=== PATIENT | male | born 1970 | race African-American/Black ===

== ENCOUNTER 2016-04-26 17:39 | Inpatient (IN) | payer OTHER ==
[~2016-04-26] VITALS: Ht 172.7 cm; Wt 79.0 kg
[~2016-04-26 17:39] MED LIST: AMLO-218 PO; CLON1TAB3 PO; GABA-526 PO; HYDR100T7 PO; LISI40TA9 PO; METO10TA92 PO; MIN10 PO; NIFE60TA12 PO; ONDA4TAB8 PO; OXYC-282 PO; RANI150T5 PO; SERT50TA6 PO
--- NOTE | 2016-04-26 20:44 | RADRPT ---
PROCEDURE: CR, chest CLINICAL INDICATION: Cough. TECHNIQUE: AP chest. COMPARISON: Chest, 04/14/2015. FINDINGS: The heart is moderately enlarged. There is linear atelectasis in the left mid lung. There is no ac aftab infiltrate in the lungs. No pleural effusion. IMPRESSION: 1. Moderate cardiomegaly. 2. Linear atelectasis in the left mid lung. RPTAT: GG .Francisco Jackson MD, MD Date Time Electronically viewed and signed by .Francisco Jackson MD, MD on 04/26/2016 20:44 .Y/
[2016-04-26] MEDS ORDERED: OXYC15TA PO (20:46)
[2016-04-26 21:28] LABS: INR 1.07; PROTIME 13.9 Sec (12.2-14.2); PT RATIO 1.1
[2016-04-26 21:29] LABS: PARTIAL THROMBOPLASTIN TIME 24.7 Sec (25.0-35.0)
[2016-04-26 21:31] LABS: ALBUMIN 3.6 g/dl (3.3-4.9)
[2016-04-26 21:35] LABS: ALBUMIN/GLOBULIN RATIO 1.09; CALCIUM 8.5 mg/dl (8.4-10.2); TOTAL PROTEIN 6.9 g/dl (6.1-8.1)
[2016-04-26 21:37] LABS: HEMATOCRIT 31.3 % (42.0-52.0); MEAN CORPUSCULAR HEMOGLOBIN 21.3 pg (29.0-33.0); MEAN CORPUSCULAR VOLUME 66.4 fl (82.0-101.0); MEAN PLATELET VOLUME 8.3 fl (7.4-10.4); PLATELET COUNT 192 10^3/UL (140-440); RED BLOOD COUNT 4.72 10^6/ul (4.70-6.10); RED CELL DISTRIBUTION WIDTH 24.5 % (11.5-14.5); UNCORRECTED WBC 6.4 10^3/ul (4.8-10.8); WHITE BLOOD COUNT 6.4 10^3/ul (4.8-10.8)
[2016-04-26 21:38] LABS: CONDITION 1; LH ANALYZER COMMENTS 1
[2016-04-26 21:47] LABS: CREATININE 14.97 mg/dl (0.61-1.24)
[2016-04-26 21:48] LABS: EOSINOPHILS # 0.2 10^3/ul (0.0-0.5); LYMPHOCYTES # 1.3 10^3/ul (0.8-2.9); MONOCYTE # 0.9 10^3/ul (0.3-0.9)
[2016-04-26] MEDS ORDERED: NA BICARBONATE 8.4% 50 ML SYG IV STA (21:50)
[2016-04-26] MEDS ORDERED: DEXTROSE 50% 50 ML SYRINGE IV STA (21:50)
[2016-04-26] MEDS ORDERED: INSULIN REGULAR, HUMAN 100 UNIT/1 ML 3ML VIAL IV STA (21:50)
[2016-04-26] MEDS ORDERED: NA POLYST SULFON 15 GM/60 ML BTL PO STA (21:50)
[2016-04-26] MEDS ORDERED: ALBUTEROL 0.5% (NEB) 2.5 MG/0.5 ML AMP INH STA (21:50)
[2016-04-26] MEDS ORDERED: ONDANSETRON 4 MG INJ IV PRN (22:00)
[2016-04-26] MEDS ORDERED: ACETAMINOPHEN 325 MG TAB PO PRN (22:00)
--- NOTE | 2016-04-26 22:07 | ERA ---
ER Documentation Chief Complaint Date/Time DATE: 04/26/16 TIME: 22:04 Chief Complaint abdominal distention and needs dialysis. pt is from out of town HPI Patient is a 45-year-old male with dialysis and hypertension who presents saying "I need to get dialyzed". The patient came from [place]. He had dialysis on Monday but needs it today. He has bilateral leg swelling and says "I need my stomach As well". He had his last paracentesis done on Monday as well he says. Upon review of old medical records this is the patient's third visit since April 2015. His primary doctor is in [place]. ROS All systems reviewed and are negative except as per history of present illness. Medications Home Meds Active Scripts Ondansetron Hcl* (Zofran*) 4 Mg Tablet, 4 MG PO Q8 for 30 Days, TAB 2 Refills Prov:KODY PHILLIP S. 04/16/15 Metoclopramide* (Reglan*) 10 Mg Tablet, 10 MG PO DAILY for 30 Days, TAB Prov:KODY PHILLIP S. 04/16/15 Ranitidine Hcl* (Ranitidine Hcl*) 150 Mg Tablet, 150 MG PO Q12 for 30 Days, TAB 2 Refills Prov:KODY PHILLIP S. 04/16/15 Minoxidil* (Lonitin*) 10 Mg Tab, 10 MG PO DAILY for 30 Days, TAB 2 Refills Prov:KODY PHILLIP S. 04/16/15 Amlodipine Besylate* (Norvasc*) 10 Mg Tablet, 10 MG PO DAILY for 30 Days, TAB 2 Refills Prov:KODY PHILLIP S. 04/16/15 Nifedipine* (Nifedical XL*) 60 Mg/Bottle Tab.osm.24, 60 MG PO DAILY for 30 Days , TAB 2 Refills Prov:KODY PHILLIP S. 04/16/15 Lisinopril* (Lisinopril*) 40 Mg Tablet, 40 MG PO DAILY, #30 TAB Prov:KODY PHILLIP S. 04/16/15 Hydralazine Hcl* (Hydralazine Hcl*) 100 Mg Tablet, 100 MG PO BID, #90 TAB Prov:KODY PHILLIP S. 04/16/15 Clonazepam* (Clonazepam*) 1 Mg Tablet, 1 MG PO QHS Y for ANXIETY for 30 Days, TAB Prov:GREG PHILLIPEEP S. 04/16/15 Reported Medications Oxycodone Hcl* (IR) (Oxycodone Hcl*) 15 Mg Tablet, 15 MG PO BID Y for PAIN, TAB 04/26/16 Discontinued Reported Medications Oxycodone Hcl-Acetaminophen* (Percocet*) 2.5-325 Mg Tablet, 1 TAB PO BID Y for SEVERE PAIN LEVEL 7-10, TAB 04/14/15 Discontinued Scripts Sertraline Hcl* (Sertraline Hcl*) 50 Mg Tablet, 50 MG PO DAILY, #30 TAB Prov:KENJI,KODY S. 04/16/15 Gabapentin* (Gabapentin*) 600 Mg Tablet, 600 MG PO TID, #90 TAB Prov:KENJIKODY S. 04/16/15 Allergies Allergies: Coded Allergies: No Known Allergy (Unverified , 04/26/16) PMhx/Soc History of Surgery: No Anesthesia Reaction: No Hx Neurological Disorder: No Hx Respiratory Disorders: No Hx Cardiac Disorders: Yes (HTN) Hx Psychiatric Problems: No Hx Miscellaneous Medical Probl: Yes (ESRD ON HD) Hx Alcohol Use: No Hx Substance Use: Yes (MARIJUANA USE) Hx Tobacco Use: Yes FmHx Family History: No diabetes Physical Exam Vitals Vital Signs Date Time Temp Pulse Resp B/P Pulse Ox O2 Delivery O2 Flow Rate FiO2 04/26/16 18:04 99.5 93 20 218/143 98 Physical Exam Const: No acute distress Head: Atraumatic Eyes: Normal Conjunctiva ENT: Normal External Ears, Nose and Mouth. Neck: Full range of motion..~ No meningismus. Resp: Clear to auscultation bilaterally Cardio: Regular rate and rhythm, no murmurs Abd: Abdominal distention with positive fluid wave Skin: No petechiae or rashes Back: No midline or flank tenderness Ext: Fistula in the left upper extremity Neur: Awake and alert Psych: Normal Mood and Affect Result Diagram: 04/26/16210004/26/162100 Results 24 hrs Laboratory Tests Test 04/26/16 21:01 Activated Partial Thromboplast Time 24.7Sec Alanine Aminotransferase (ALT/SGPT) 31IU/L Albumin 3.6g/dl Albumin/Globulin Ratio 1.09 Alkaline Phosphatase 88IU/L Anion Gap 23 Aspartate Amino Transf (AST/SGOT) 26IU/L Blood Morphology Comment Blood Urea Nitrogen 97mg/dl Calcium Level 8.5mg/dl Carbon Dioxide Level 29mmol/L Chloride Level 93mmol/L Creatinine 14.97mg/dl Direct Bilirubin 0.00mg/dl Eosinophils # 0.210^3/ul Eosinophils % 3.0% Globulin 3.30g/dl Glucose Level 75mg/dl Hematocrit 31.3% Hemoglobin 10.0g/dl INR International Normalized Ratio 1.07 Indirect Bilirubin 0.0mg/dl Lipase 114U/L Lymphocytes # 1.310^3/ul Lymphocytes % 21.0% Mean Corpuscular Hemoglobin 21.3pg Mean Corpuscular Hemoglobin Concent 32.0g/dl Mean Corpuscular Volume 66.4fl Mean Platelet Volume 8.3fl Monocytes # 0.910^3/ul Monocytes % 14.0% Neutrophils # 4.010^3/ul Neutrophils % 62.0% Platelet Count 79303^3/UL Potassium Level 7.0mmol/L Prothrombin Time 13.9Sec Prothrombin Time Ratio 1.1 Red Blood Count 4.7210^6/ul Red Cell Distribution Width 24.5% Sodium Level 138mmol/L Total Bilirubin 0.0mg/dl Total Protein 6.9g/dl White Blood Count 6.410^3/ul Current Medications Medications (Trade) Dose Ordered Sig/Alejandrina Route PRN Reason Start Time Stop Time Status Last Admin Dose Admin Insulin Human Regular (Humulin R) 10 unit ONCE STAT IV 04/26/16 21:50 04/26/16 21:51 DC Dextrose (D50w Syringe) 50 ml ONCE STAT IV 04/26/16 21:50 04/26/16 21:51 DC Sodium Polystyrene Sulfonate (Kayexalate) 30 gm ONCE STAT PO 04/26/16 21:50 04/26/16 21:51 DC Albuterol (Proventil 0.5% (Neb)) 15 mg ONCE STAT INH 04/26/16 21:50 04/26/16 21:51 DC Sodium Bicarbonate (Na Bicarb 8.4% Syg) 50 ml ONCE STAT IV 04/26/16 21:50 04/26/16 21:51 DC Ondansetron HCl (Zofran Inj) 4 mg ER BRIDGE PRN IV NAUSEA AND/OR VOMITING 04/26/16 22:00 04/27/16 21:59 Acetaminophen (Tylenol Tab) 650 mg ER BRIDGE PRN PO MILD PAIN/FEVER 04/26/16 22:00 04/27/16 21:59 Procedures/MDM EKG read by me: Rate/Rhythm: Regular rate and rhythm at a normal rate Intervals: Normal Impression: No evidence of ischemia or arrhythmia Smoking Cessation Therapy: Pt. was lectured for greater than 3 minutes on the health risks of continued smoking and the benefits of cessation. Patient is a 45-year-old male who presents with severe hyperkalemia as well as ascites. The patient will treated for hyperkalemia with insulin, glucose, bicarbonate, Kayexalate, and albuterol. The patient will be admitted to the care of Dr. An from the panel team as he has been admitted to the panel team in the past. The patient will be admitted to a telemetry bed. He also had hypertension and was given hydralazine IV. Given his comorbidities he does have a poor prognosis. Critical Care: Time: 35 minutes excluding all billable procedures. Treatments/Evaluations: Close monitoring and treatment of unstable vital signs, cardiorespiratory, and neurologic status, while maintaining tight balance of fluid, respiratory, and cardiac interventions. Departure Diagnosis: Primary Impression: Hyperkalemia Additional Impressions: Ascites Qualified Code: R18.8 - Other ascites Hypertension Qualified Code: I10 - Essential hypertension Fluid overload Qualified Code: E87.70 - Hypervolemia, unspecified hypervolemia type Condition: CORI Mooney MD Apr 26, 2016 22:07
[2016-04-26] MEDS ORDERED: hydrALAzine 20 MG INJ IV ONE ×2 (22:30→23:30)
[2016-04-26] MEDS ORDERED: HYDROmorphONE 1 MG/ML SYG IV STA (23:36)
[2016-04-27] VITALS (20 sets, daily range): BP systolic 151–204; BP diastolic 97–142; PULSE 90–108; RESP 18–20; Ht 172.7 cm; Wt 79.0 kg
[2016-04-27] MEDS ORDERED: METOPROLOL 5 MG INJ IV ONE (00:30)
[2016-04-27] MEDS ORDERED: LABETALOL HCL 20MG INJ IV ONE (01:27)
[2016-04-27] MEDS: morphine 4 MG/ML VIAL IV PRN ×4 (01:32→15:38)
[2016-04-27 02:37] LABS: CALCIUM 8.4 mg/dl (8.4-10.2)
[2016-04-27 02:40] LABS: POTASSIUM 6.6 mmol/L (3.5-5.1)
[2016-04-27 02:55] LABS: CREATININE 13.85 mg/dl (0.61-1.24)
[2016-04-27] MEDS ORDERED: oxyCODONE (CR) 15 MG TAB [oxyCONTIN] PO PRN (04:00)
[2016-04-27] MEDS ORDERED: oxyCODONE 15 MG TAB PO PRN (04:42)
[2016-04-27] MEDS: clonAZEPAM 0.5 MG TAB PO PRN (04:59)
[2016-04-27] MEDS ORDERED: NA POLYST SULFON 15 GM/60 ML BTL PO ONE (05:20)
[2016-04-27] MEDS ORDERED: CALCIUM GLUCONATE 10% 2 GM in SOD CHLORIDE 0.9% 100 ML IVPB ONE (05:30)
[2016-04-27] MEDS: MINOXIDIL 10 MG TAB PO SCH (06:14)
[2016-04-27] MEDS: NIFEdipine (XL) 60 MG TAB PO SCH (06:15)
[2016-04-27] MEDS: LISINOPRIL 20 MG TAB PO SCH (06:15)
[2016-04-27] MEDS: AMLODIPINE 10 MG TAB PO SCH (06:16)
[2016-04-27] MEDS ORDERED: LISINOPRIL 20 MG TAB PO SCH (09:00)
[2016-04-27] MEDS ORDERED: AMLODIPINE 10 MG TAB PO SCH (09:00)
[2016-04-27] MEDS ORDERED: MINOXIDIL 10 MG TAB PO SCH (09:00)
[2016-04-27] MEDS ORDERED: NIFEdipine (XL) 60 MG TAB PO SCH (09:00)
[2016-04-27] MEDS: RANITIDINE 150 MG TAB PO SCH (09:25)
[2016-04-27] MEDS: hydrALAzine 20 MG INJ IV PRN (09:27)
[2016-04-27] MEDS: HEPARIN 5,000 UNIT/0.5 ML SYG SC SCH (09:37)
[2016-04-27 10:00] LABS: BASOPHILS % 0.6 % (0.0-2.0); EOSINOPHILS # 0.2 10^3/ul (0.0-0.5); EOSINOPHILS % 2.5 % (0.0-7.0); HEMATOCRIT 31.1 % (42.0-52.0); HEMOGLOBIN 9.9 g/dl (14.0-18.0); LYMPHOCYTES # 1.4 10^3/ul (0.8-2.9); LYMPHOCYTES % 18.3 % (15.0-51.0); MEAN CORPUSCULAR HGB CONC 31.9 g/dl (32.0-37.0); MEAN CORPUSCULAR VOLUME 65.8 fl (82.0-101.0); MEAN PLATELET VOLUME 8.5 fl (7.4-10.4); MONOCYTE # 0.7 10^3/ul (0.3-0.9); MONOCYTES % 9.3 % (0.0-11.0); NEUTROPHIL # 5.2 10^3/ul (1.6-7.5); NEUTROPHILS % 69.3 % (39.0-77.0); PLATELET COUNT 193 10^3/UL (140-440); RED BLOOD COUNT 4.72 10^6/ul (4.70-6.10); RED CELL DISTRIBUTION WIDTH 23.9 % (11.5-14.5); UNCORRECTED WBC 7.5 10^3/ul (4.8-10.8); WHITE BLOOD COUNT 7.5 10^3/ul (4.8-10.8)
[2016-04-27 10:09] LABS: ALBUMIN 3.6 g/dl (3.3-4.9)
[2016-04-27 10:10] LABS: POTASSIUM 5.5 mmol/L (3.5-5.1)
[2016-04-27 10:12] LABS: ALBUMIN/GLOBULIN RATIO 1.09; TOTAL PROTEIN 6.9 g/dl (6.1-8.1)
[2016-04-27 10:13] LABS: CALCIUM 8.3 mg/dl (8.4-10.2)
[2016-04-27 10:20] LABS: CREATININE 14.75 mg/dl (0.61-1.24)
[2016-04-27 10:24] LABS: CONDITION 1; LH ANALYZER COMMENTS 1
[2016-04-27] MEDS ORDERED: LIDOCAINE 1% (MPF) 5 ML VIAL ONE (10:48)
[2016-04-27 11:18] LABS: CHOL/HDL RATIO 2.7 RATIO
--- NOTE | 2016-04-27 11:32 | RADRPT ---
PROCEDURE: Ultrasound guided paracentesis. CLINICAL INDICATION: Ascites and shortness of breath. COMPARISON: No prior studies are available for comparison. TECHNIQUE: The risks, benefits, and alternatives were explained to the patient, including but not limited to bl eeding, infection, pain, visceral or vascular damage, shock, and . The patient understood the risks and the alternatives and wished to proceed with the procedure. Informed written consent was o btained. A procedural time out was performed. The patient's name, date of , and procedure to b e performed were verified. Utilizing ultrasound guidance, optimal location for entry to the peritoneal cavity was ascertained. The overlying skin was prepped and draped in the usual sterile fashion. Approximately 10 ml of 1% Xylocaine was injected locally for pain control. Using ultrasound guidance, an 8 Turkmen catheter wa s introduced into the peritoneal cavity in the left lower quadrant without difficulty. FINDINGS: Initial images demonstrate ascites. Approximately 3.5 liters of serous fluid was aspirated and disc arded. The patient tolerated the procedure well without complication. IMPRESSION: 1. Successful ultrasound-guided paracentesis. RPTAT: QQ .Candido Howe MD, Date Time Electronically viewed and signed by .Candido Howe MD, MD on 04/27/2016 11:32 .R/
--- NOTE | 2016-04-27 12:44 | QN ---
Documentation Comment [id number] ESRD HTN HYPERKALEMIA ANEMIA ASHD ASCITES PLAN HD BP CONTROL TERE REIS MD Apr 27, 2016 12:44
--- NOTE | 2016-04-27 13:34 | PN ---
DATE: 04/27/2016 SUBJECTIVE: No acute events overnight. The patient off the floor at procedure. OBJECTIVE VITAL SIGNS: Systolic blood pressure is running in the 195 to 200 range, diastolic is 132 to 142. The rest of his vital signs are stable. Physical examination unable to be performed today because the patient is off the floor at paracentes is. LABORATORY DATA: There is no new CBC or basic metabolic panel from this morning. The patient had a chest x-ray yesterday that showed moderate cardiomegaly, and linear atelectasis in the left mid erick g. ASSESSMENT AND PLAN: A 45-year-old male who presents with past medical history of end-stage renal di sease on dialysis, and hypertension who presents with abdominal distention and need for dialysis. 1. End-stage renal disease on dialysis. Again, patient looks like he has missed his dialysis sessi on for the last few days, so we will get renal consult. Continue dialysis per their recommendations as well. 2. Hypertensive urgency. Blood pressure is uncontrolled. Continue home medications: Norvasc, nife dipine, lisinopril, minoxidil and also he is on hydralazine IV p.r.n. systolic greater than 160 as w ell. 3. History of cirrhosis. Again, patient does have abdominal distention and is undergoing paracente sis. For now follow up fluid studies and continue current medications as listed in #2. 4. GI prophylaxis. 5. Deep venous thrombosis prophylaxis. Heparin subcutaneously. 6. Gastrointestinal prophylaxis. He is on an H2 jn. Dictated By: KODY MARCUM Conf#: [id number] DID#: [id number]
--- NOTE | 2016-04-27 14:09 | CONS ---
DATE OF ADMISSION: 04/26/2016 DATE OF CONSULTATION: Thank you, Dr. Gu, for kindly asking me to see this patient in nephrology consultation. HISTORY OF PRESENT ILLNESS: The patient is a 45-year-old male with history of ESRD, hypertension, history of marijuana use, presented with missing hemodialysis, noted to have hyperkalemia, which has been treated medically, and patient will need hemodialysis. The patient has a history of ascites, status post paracentesis done, 3.5 liters of fluid was removed, and the patient is going to be undergoing hemodialysis. PAST MEDICAL HISTORY: As per patient, ascites, hypertension, ESRD, anemia, AV fistula in left upper extremity. ALLERGY HISTORY: NEGATIVE. FAMILY HISTORY: Hypertension. SOCIAL HISTORY: Positive for smoking marijuana. MEDICATIONS AT HOME: 1. Patient is on Norvasc. 2. Clonazepam. 3. Hydralazine. 4. Lisinopril. 5. Reglan. 6. Minoxidil. 7. Nifedipine. 8. Zofran. 9. Oxycodone. 10. Ranitidine. REVIEW OF SYSTEMS: HEENT: Unremarkable. RESPIRATORY: ABDOMEN: Unremarkable. No abdominal pain. PHYSICAL EXAMINATION: GENERAL: The patient is awake, alert. VITAL SIGNS: Pulse of 94, blood pressure 197/136. HEAD: Atraumatic, normocephalic. Pupils are equal and reactive. NECK: Supple, no JVD. LUNGS: Clear. CARDIOVASCULAR: S1, S2 are normal. ABDOMEN: Soft. Bowel sounds positive. Ascites appreciated. EXTREMITIES: There is no cyanosis, clubbing. Edema positive. CENTRAL NERVOUS SYSTEM: The patient is awake, alert, no focal deficit. LABORATORY DATA: Potassium earlier 7, repeat _ Patient's hematocrit 31.1. Chest x-ray shows the patient has moderate cardiomegaly, linear atelectasis in left mid lung. IMPRESSION 1. Hyperkalemia/end-stage renal disease. 2. Hypertension. uncontrolled. 3. Ascites. 4. Anemia. 5. Decreased MCV. 6. Hyperkalemia. 7. Noncompliance. 8. History of marijuana use. PLAN: To continue renal diet, blood pressure control, hemodialysis. Orders were done. Thank you, Dr. Gu, for kindly asking me to evaluate this patient in nephrology consultation. Patient is currently on: 1. Amlodipine. 2. Clonazepam. 3. Clonidine. 4. The patient is on hydralazine. 5. Patient is on lisinopril. 6. Reglan. 7. Metoprolol. 8. Minoxidil, which will be continued. Dictated By: TERE BANDA/HUMA Conf#: [id number] DID#: [id number] MTDD
--- NOTE | 2016-04-27 23:55 | HP ---
Date/Time of Note Date/Time of Note DATE: 04/26/16 TIME: 23:41 Assessment/Plan VTE Prophylaxis VTE Prophylaxis Intervention: SCD's, other Lines/Catheters IV [facility] Saline Lock Urinary Cath still in place: No Assessment/Plan Assessment/Plan IMPRESSION 1. Hyperkalemia, 2/2 missing dialysis 2. ESRD on HD 3. Decompensated Liver Cirrhosis with ascites 4. Hypertensive Urgency PLAN - Nephrology consult for dialysis - Give extra dose of kayexalate since repeat K+ is still high - Cont home anti-hypertensive meds and add/adjust dose for better BP control - Order u/s guided paracentesis - Since pt still makes urine, his home meds should include lasix and if he is to get dialysis regularly(so as not to run into problem with hyperkalemia), Aldactone as well. This way, he may not need paracentesis [id number] HPI/ROS Admit Date/Time Admit Date/Time Apr 26, 2016 at 21:51 Hx of Present Illness Patient is a 45 yo male with hx of HTN, ESRD on HD, Cirrhosis and neuropathy who presented to ER complaining of abd distention and bilateral lower ext swelling. He said last HD was a week ago. He said he gets paracentesis every 2 weeks. He came from [place] recently and said will stay for 2 weeks here before going back. He was admitted here last year for similar presentation after coming from [place] and missing dialysis. When pt came to ER today, he was found to have a K+ of 7, BUN 97, cr 15. Blood pressure has consistently been elevated with SBP > 200. . PMH/Family/Social Past Medical History Medical History: hypertension, renal disease, other (cirrhosis) Past Surgical History Past Surgical Hx: other (AV fistula) Social History Alcohol Use: sober Smoking Status: Current every day smoker Drug Use: marijuana Exam/Review of Systems Vital Signs Vitals Vital Signs Date Time Temp Pulse Resp B/P Pulse Ox O2 Delivery O2 Flow Rate FiO2 04/27/16 23:00 105 04/27/16 20:30 18 04/27/16 19:30 98.3 158/103 93 04/27/16 06:17 Room Air 04/27/16 00:21 21 Intake and Output 04/26/16 04/26/16 04/27/16 15:00 23:00 07:00 Intake Total 500 ml Output Total 200 ml Balance 300 ml Exam Constitutional: alert, oriented, well developed Head: atraumatic, normocephalic Eyes: EOMI, PERRL Respiratory: clear to auscultation, normal air movement Cardiovascular: other (tachycardic with regular rhythm) Gastrointestinal: distended, tender Extremities: edema Labs Result Diagram: 04/27/1630 04/27/1630 Medications Medications Current Medications Morphine Sulfate (morphine) 4 mg Q4H PRN IV pain Last administered on 15:38; Admin Dose 4 MG; Start 04/27/16 at 01:20 Heparin Sodium (Porcine) (Heparin (5000 Units/0.5 ml)) 5,000 unit BID SC Last administered on 04/27/16 09:37; Admin Dose 5,000 UNIT; Start 04/27/16 at 09:00 Clonidine (Catapres) 0.1 mg Q6H PRN PO ELEVATED SYSTOLIC BP Last administered on 04/27/16 03:43; Admin Dose 0.1 MG; Start 04/27/16 at 01:30 Clonazepam (Klonopin) 1 mg QHS PRN PO ANXIETY Last administered on 04/27/16 04 :59; Admin Dose 1 MG; Start 04/27/16 at 04:00 Metoclopramide HCl (Reglan) 10 mg DAILY PRN PO NAUSEA AND/OR VOMITING; Start at 04:00 Ranitidine HCl (Zantac) 150 mg DAILY PO Last administered on 04/27/16 09:25; Admin Dose 150 MG; Start 04/27/16 at 09:00 Oxycodone HCl (Roxicodone) 15 mg BID PRN PO PAIN; Start 04/27/16 at 04:42 Lisinopril (Zestril) 40 mg DAILY PO Last administered on 04/27/16 06:15; Admin Dose 40 MG; Start 04/27/16 at 06:00 Amlodipine Besylate (Norvasc) 10 mg DAILY PO Last administered on 04/27/16 06: 16; Admin Dose 10 MG; Start 04/27/16 at 06:00 Minoxidil (Loniten) 10 mg DAILY PO Last administered on 04/27/16 06:14; Admin Dose 10 MG; Start 04/27/16 at 06:00 Nifedipine (Procardia Xl) 60 mg DAILY PO Last administered on 04/27/16 06:15; Admin Dose 60 MG; Start 04/27/16 at 06:00 Hydralazine HCl (Apresoline) 10 mg Q4H PRN IV SBP >160 Last administered on 09:27; Admin Dose 10 MG; Start 04/27/16 at 08:30 JARRED ABRAHAM MD Apr 27, 2016 23:52
[2016-04-28] VITALS (20 sets, daily range): BP systolic 122–184; BP diastolic 68–114; PULSE 104–122; RESP 15–20
[2016-04-28] MEDS: clonAZEPAM 0.5 MG TAB PO PRN (00:40)
[2016-04-28] MEDS: hydrALAzine 20 MG INJ IV PRN (00:44)
[2016-04-28] MEDS: HEPARIN 5,000 UNIT/0.5 ML SYG SC SCH ×3 (00:48→21:03)
[2016-04-28 06:51] LABS: BASOPHILS % 0.6 % (0.0-2.0); CREATININE 9.29 mg/dl (0.61-1.24); EOSINOPHILS # 0.2 10^3/ul (0.0-0.5); EOSINOPHILS % 3.2 % (0.0-7.0); HEMATOCRIT 29.3 % (42.0-52.0); HEMOGLOBIN 9.3 g/dl (14.0-18.0); LYMPHOCYTES # 1.3 10^3/ul (0.8-2.9); LYMPHOCYTES % 19.9 % (15.0-51.0); MEAN CORPUSCULAR HEMOGLOBIN 21.2 pg (29.0-33.0); MEAN CORPUSCULAR HGB CONC 31.8 g/dl (32.0-37.0); MEAN CORPUSCULAR VOLUME 66.5 fl (82.0-101.0); MEAN PLATELET VOLUME 8.5 fl (7.4-10.4); MONOCYTE # 1.1 10^3/ul (0.3-0.9); MONOCYTES % 17.4 % (0.0-11.0); NEUTROPHIL # 3.8 10^3/ul (1.6-7.5); NEUTROPHILS % 58.9 % (39.0-77.0); PLATELET COUNT 185 10^3/UL (140-440); RED BLOOD COUNT 4.41 10^6/ul (4.70-6.10); UNCORRECTED WBC 6.4 10^3/ul (4.8-10.8); WHITE BLOOD COUNT 6.4 10^3/ul (4.8-10.8)
[2016-04-28 06:52] LABS: CALCIUM 8.6 mg/dl (8.4-10.2)
[2016-04-28 07:05] LABS: CONDITION 1; LH ANALYZER COMMENTS 1
[2016-04-28] MEDS: morphine 4 MG/ML VIAL IV PRN (07:52)
[2016-04-28] MEDS: RANITIDINE 150 MG TAB PO SCH (08:28)
[2016-04-28] MEDS: METOCLOPRAMIDE 5 MG TAB PO PRN (08:28)
[2016-04-28] MEDS: MINOXIDIL 10 MG TAB PO SCH (08:28)
[2016-04-28] MEDS: LISINOPRIL 20 MG TAB PO SCH (08:29)
[2016-04-28] MEDS: NIFEdipine (XL) 60 MG TAB PO SCH (08:29)
[2016-04-28] MEDS: AMLODIPINE 10 MG TAB PO SCH (08:29)
--- NOTE | 2016-04-28 11:46 | PN ---
Date/Time of Note Date/Time of Note DATE: 04/28/16 TIME: 11:44 Assessment/Plan VTE Prophylaxis VTE Prophylaxis Intervention: heparin Lines/Catheters IV C[facility]ter Type (from [facility]): Saline Lock Urinary Cath still in place: No Assessment/Plan Chief Complaint/Hosp Course ASSESSMENT AND PLAN: 45-year-old male who presents with past medical history of end-stage renal disease on dialysis, and hypertension who presents with abdominal distention and need for dialysis. 1. End-stage renal disease on dialysis. Again, patient looks like he has missed his dialysis session for the last few days. - continue HD in house per renal rec's 2. Hypertensive urgency - has been uncontrolled until this AM - Continue home medications: Norvasc, nifedipine, lisinopril, minoxidil - continue hydralazine IV p.r.n. systolic greater than 160 as well. 3. History of cirrhosis. Again, patient does have abdominal distention and is s/p paracentesis yesterday. - monitor, f/u fluid studies and continue current medications as listed in # 2. 4. GI prophylaxis - H2 jn. 5. Deep venous thrombosis prophylaxis. Heparin subcutaneously. Problems: Subjective 24 Hr Interval Summary Free Text/Dictation Pt received HD yesterday, and getting it now. Exam/Review of Systems Vital Signs Vitals Vital Signs Date Time Temp Pulse Resp B/P Pulse Ox O2 Delivery O2 Flow Rate FiO2 04/28/16 08:14 98.7 103 20 184/110 96 04/27/16 06:17 Room Air 04/27/16 00:21 21 Intake and Output 04/27/16 04/27/16 04/28/16 15:00 23:00 07:00 Intake Total 100 ml 2260 ml Output Total 4000 ml Balance 100 ml -1740 ml Exam Constitutional: alert, oriented, well developed Head: atraumatic, normocephalic Eyes: EOMI, PERRL Respiratory: clear to auscultation, normal air movement Cardiovascular: other (tachycardic with regular rhythm) Gastrointestinal: less distended, less tender Extremities: edema Results Result Diagram: 04/28/16 0600 04/28/16 0600 Results 24 hrs Laboratory Tests Test 04/28/16 06:00 Anion Gap 18 #H Basophils # 0.0 Basophils % 0.6 Blood Morphology Comment Blood Urea Nitrogen 54 #H Calcium Level 8.6 Carbon Dioxide Level 29 Chloride Level 92 L Creatinine 9.29 #H Eosinophils # 0.2 Eosinophils % 3.2 Glucose Level 81 Hematocrit 29.3 L Hemoglobin 9.3 L Lymphocytes # 1.3 Lymphocytes % 19.9 Mean Corpuscular Hemoglobin 21.2 L Mean Corpuscular Hemoglobin Concent 31.8 L Mean Corpuscular Volume 66.5 L Mean Platelet Volume 8.5 Monocytes # 1.1 H Monocytes % 17.4 H Neutrophils # 3.8 Neutrophils % 58.9 Nucleated Red Blood Cells # 0.0 Nucleated Red Blood Cells % 0.0 Platelet Count 185 Potassium Level 5.0 Red Blood Count 4.41 L Red Cell Distribution Width 24.0 H Sodium Level 134 L White Blood Count 6.4 Medications Medications Current Medications Morphine Sulfate (morphine) 4 mg Q4H PRN IV pain Last administered on 07:52; Admin Dose 4 MG; Start 04/27/16 at 01:20 Heparin Sodium (Porcine) (Heparin (5000 Units/0.5 ml)) 5,000 unit BID SC Last administered on 04/28/16 00:48; Admin Dose 5,000 UNIT; Start 04/27/16 at 09:00 Clonidine (Catapres) 0.1 mg Q6H PRN PO ELEVATED SYSTOLIC BP Last administered on 04/27/16 03:43; Admin Dose 0.1 MG; Start 04/27/16 at 01:30 Clonazepam (Klonopin) 1 mg QHS PRN PO ANXIETY Last administered on 04/28/16 00 :40; Admin Dose 1 MG; Start 04/27/16 at 04:00 Metoclopramide HCl (Reglan) 10 mg DAILY PRN PO NAUSEA AND/OR VOMITING Last administered on 04/28/16 08:28; Admin Dose 10 MG; Start 04/27/16 at 04:00 Ranitidine HCl (Zantac) 150 mg DAILY PO Last administered on 04/28/16 08:28; Admin Dose 150 MG; Start 04/27/16 at 09:00 Oxycodone HCl (Roxicodone) 15 mg BID PRN PO PAIN Last administered on 00:40; Admin Dose 15 MG; Start 04/27/16 at 04:42 Lisinopril (Zestril) 40 mg DAILY PO Last administered on 04/28/16 08:29; Admin Dose 40 MG; Start 04/27/16 at 06:00 Amlodipine Besylate (Norvasc) 10 mg DAILY PO Last administered on 04/28/16 08: 29; Admin Dose 10 MG; Start 04/27/16 at 06:00 Minoxidil (Loniten) 10 mg DAILY PO Last administered on 04/28/16 08:28; Admin Dose 10 MG; Start 04/27/16 at 06:00 Nifedipine (Procardia Xl) 60 mg DAILY PO Last administered on 04/28/16 08:29; Admin Dose 60 MG; Start 04/27/16 at 06:00 Hydralazine HCl (Apresoline) 10 mg Q4H PRN IV SBP >160 Last administered on 00:44; Admin Dose 10 MG; Start 04/27/16 at 08:30 KODY PHILLIP Apr 28, 2016 11:46
[2016-04-28] MEDS ORDERED: METOPROLOL (XL) 50 MG TAB PO ONE (12:00)
--- NOTE | 2016-04-28 19:31 | CONS ---
Date/Time of Note Date/Time of Note DATE: 04/28/16 TIME: 19:30 Assessment/Plan Assessment/Plan Chief Complaint/Hosp Course 1. Hyperkalemia/end-stage renal disease. 2. Hypertension. uncontrolled. 3. Ascites. 4. Anemia. 5. Decreased MCV. 6. Hyperkalemia. 7. Noncompliance. 8. History of marijuana use. plan hd Problems: Consultation Date/Type/Reason Admit Date/Time Apr 26, 2016 at 21:51 Initial Consult Date Type of Consultation: renal 24 HR Interval Summary Constitutional: no complaints Exam/Review of Systems Vital Signs Vitals Vital Signs Date Time Temp Pulse Resp B/P Pulse Ox O2 Delivery O2 Flow Rate FiO2 04/28/16 16:34 116 04/28/16 16:30 98.2 19 124/68 98 04/27/16 06:17 Room Air 04/27/16 00:21 21 Intake and Output 04/27/16 04/27/16 04/28/16 15:00 23:00 07:00 Intake Total 100 ml 2260 ml Output Total 4000 ml Balance 100 ml -1740 ml Exam Neck: supple Respiratory: clear to auscultation Cardiovascular: regular rate and rhythm Gastrointestinal: ascites (+), non-tender, soft Extremities: edema (+) Results Result Diagram: 04/28/16 0600 04/28/16 0600 Results 24 hrs Laboratory Tests Test 04/28/16 06:00 Anion Gap 18 #H Basophils # 0.0 Basophils % 0.6 Blood Morphology Comment Blood Urea Nitrogen 54 #H Calcium Level 8.6 Carbon Dioxide Level 29 Chloride Level 92 L Creatinine 9.29 #H Eosinophils # 0.2 Eosinophils % 3.2 Glucose Level 81 Hematocrit 29.3 L Hemoglobin 9.3 L Lymphocytes # 1.3 Lymphocytes % 19.9 Mean Corpuscular Hemoglobin 21.2 L Mean Corpuscular Hemoglobin Concent 31.8 L Mean Corpuscular Volume 66.5 L Mean Platelet Volume 8.5 Monocytes # 1.1 H Monocytes % 17.4 H Neutrophils # 3.8 Neutrophils % 58.9 Nucleated Red Blood Cells # 0.0 Nucleated Red Blood Cells % 0.0 Platelet Count 185 Potassium Level 5.0 Red Blood Count 4.41 L Red Cell Distribution Width 24.0 H Sodium Level 134 L White Blood Count 6.4 Medications Medications Current Medications Morphine Sulfate (morphine) 4 mg Q4H PRN IV pain Last administered on 07:52; Admin Dose 4 MG; Start 04/27/16 at 01:20 Heparin Sodium (Porcine) (Heparin (5000 Units/0.5 ml)) 5,000 unit BID SC Last administered on 04/28/16 00:48; Admin Dose 5,000 UNIT; Start 04/27/16 at 09:00 Clonidine (Catapres) 0.1 mg Q6H PRN PO ELEVATED SYSTOLIC BP Last administered on 04/27/16 03:43; Admin Dose 0.1 MG; Start 04/27/16 at 01:30 Clonazepam (Klonopin) 1 mg QHS PRN PO ANXIETY Last administered on 04/28/16 00 :40; Admin Dose 1 MG; Start 04/27/16 at 04:00 Metoclopramide HCl (Reglan) 10 mg DAILY PRN PO NAUSEA AND/OR VOMITING Last administered on 04/28/16 08:28; Admin Dose 10 MG; Start 04/27/16 at 04:00 Ranitidine HCl (Zantac) 150 mg DAILY PO Last administered on 04/28/16 08:28; Admin Dose 150 MG; Start 04/27/16 at 09:00 Oxycodone HCl (Roxicodone) 15 mg BID PRN PO PAIN Last administered on 00:40; Admin Dose 15 MG; Start 04/27/16 at 04:42 Lisinopril (Zestril) 40 mg DAILY PO Last administered on 04/28/16 08:29; Admin Dose 40 MG; Start 04/27/16 at 06:00 Amlodipine Besylate (Norvasc) 10 mg DAILY PO Last administered on 04/28/16 08: 29; Admin Dose 10 MG; Start 04/27/16 at 06:00 Minoxidil (Loniten) 10 mg DAILY PO Last administered on 04/28/16 08:28; Admin Dose 10 MG; Start 04/27/16 at 06:00 Nifedipine (Procardia Xl) 60 mg DAILY PO Last administered on 04/28/16 08:29; Admin Dose 60 MG; Start 04/27/16 at 06:00 Hydralazine HCl (Apresoline) 10 mg Q4H PRN IV SBP >160 Last administered on t 00:44; Admin Dose 10 MG; Start 04/27/16 at 08:30 TERE REIS MD Apr 28, 2016 19:31
[2016-04-29] VITALS (11 sets, daily range): BP systolic 117–134; BP diastolic 71–92; PULSE 112–118; RESP 15–19
[2016-04-29] MEDS: clonAZEPAM 0.5 MG TAB PO PRN (00:23)
[2016-04-29] MEDS: METOCLOPRAMIDE 5 MG TAB PO PRN (02:08)
[2016-04-29] MEDS: NIFEdipine (XL) 60 MG TAB PO SCH (08:23)
[2016-04-29] MEDS: AMLODIPINE 10 MG TAB PO SCH (08:24)
[2016-04-29] MEDS: LISINOPRIL 20 MG TAB PO SCH (08:24)
[2016-04-29] MEDS: RANITIDINE 150 MG TAB PO SCH (08:24)
[2016-04-29] MEDS: MINOXIDIL 10 MG TAB PO SCH (08:24)
[2016-04-29] MEDS: HEPARIN 5,000 UNIT/0.5 ML SYG SC SCH (08:24)
[2016-04-29 09:27] LABS: HEMATOCRIT 38.2 % (42.0-52.0); HEMOGLOBIN 12.1 g/dl (14.0-18.0); MEAN CORPUSCULAR HEMOGLOBIN 21.2 pg (29.0-33.0); MEAN CORPUSCULAR HGB CONC 31.7 g/dl (32.0-37.0); MEAN CORPUSCULAR VOLUME 66.9 fl (82.0-101.0); MEAN PLATELET VOLUME 8.6 fl (7.4-10.4); PLATELET COUNT 215 10^3/UL (140-440); RED BLOOD COUNT 5.71 10^6/ul (4.70-6.10); RED CELL DISTRIBUTION WIDTH 23.9 % (11.5-14.5); UNCORRECTED WBC 5.5 10^3/ul (4.8-10.8); WHITE BLOOD COUNT 5.5 10^3/ul (4.8-10.8)
[2016-04-29 09:29] LABS: CONDITION 1; LH ANALYZER COMMENTS 1
[2016-04-29 09:39] LABS: POTASSIUM 4.8 mmol/L (3.5-5.1)
[2016-04-29 09:41] LABS: CREATININE 7.82 mg/dl (0.61-1.24)
[2016-04-29 09:42] LABS: CALCIUM 9.1 mg/dl (8.4-10.2)
[2016-04-29 10:49] LABS: BASOPHIL # 0.2 10^3/ul (0.0-0.1); EOSINOPHILS # 0.2 10^3/ul (0.0-0.5); LYMPHOCYTES # 1.8 10^3/ul (0.8-2.9); MONOCYTE # 0.4 10^3/ul (0.3-0.9); NEUTROPHIL # 2.9 10^3/ul (1.6-7.5)
--- NOTE | 2016-04-29 11:49 | PN ---
Date/Time of Note Date/Time of Note DATE: 04/29/16 TIME: 11:47 Assessment/Plan VTE Prophylaxis VTE Prophylaxis Intervention: heparin Lines/Catheters IV C[facility]ter Type (from [facility] Urinary Cath still in place: No Assessment/Plan Chief Complaint/Hosp Course ASSESSMENT AND PLAN: 45-year-old male who presents with past medical history of end-stage renal disease on dialysis, and hypertension who presents with abdominal distention and need for dialysis. 1. End-stage renal disease on dialysis. Again, patient looks like he has missed his dialysis session for the last few days. - continue HD in house per renal rec's 2. Hypertensive urgency - has been uncontrolled now - Continue home medications: Norvasc, nifedipine, lisinopril, minoxidil - continue hydralazine IV p.r.n. systolic greater than 160 as well. 3. History of cirrhosis. Again, patient does have abdominal distention and is s/p paracentesis yesterday. - monitor, f/u fluid studies and continue current medications as listed in # 2. 4. GI prophylaxis - H2 jn. 5. Deep venous thrombosis prophylaxis. Heparin subcutaneously. 6. sinus tach - asymptomatic - get CV consult given TWI in lead II, also get ECHO and check troponin. Problems: Subjective 24 Hr Interval Summary Free Text/Dictation Pt received HD yesterday, no cp. Exam/Review of Systems Vital Signs Vitals Vital Signs Date Time Temp Pulse Resp B/P Pulse Ox O2 Delivery O2 Flow Rate FiO2 04/29/16 08:11 114 04/29/16 07:55 98.9 19 132/89 95 04/27/16 06:17 Room Air 04/27/16 00:21 21 Intake and Output 04/28/16 04/28/16 04/29/16 15:00 23:00 07:00 Intake Total 500 ml 850 ml Output Total 3500 ml 3000 ml Balance -3000 ml -2150 ml Exam Constitutional: alert, oriented, well developed Head: atraumatic, normocephalic Eyes: EOMI, PERRL Respiratory: clear to auscultation, normal air movement Cardiovascular: other (tachycardic with regular rhythm) Gastrointestinal: less distended, less tender Extremities: edema Results Result Diagram: 04/29/16 0912 04/29/16 0912 Results 24 hrs Laboratory Tests Test 04/29/16 09:12 Anion Gap 18 H Basophils # 0.2 H Basophils % 3.0 H Blood Morphology Comment Blood Urea Nitrogen 36 #H Calcium Level 9.1 Carbon Dioxide Level 28 Chloride Level 93 L Creatinine 7.82 H Eosinophils # 0.2 Eosinophils % 4.0 Glucose Level 92 Hematocrit 38.2 #L Hemoglobin 12.1 #L Lymphocytes # 1.8 Lymphocytes % 33.0 Mean Corpuscular Hemoglobin 21.2 L Mean Corpuscular Hemoglobin Concent 31.7 L Mean Corpuscular Volume 66.9 L Mean Platelet Volume 8.6 Monocytes # 0.4 Monocytes % 8.0 Neutrophils # 2.9 Neutrophils % 52.0 Platelet Count 215 Potassium Level 4.8 Red Blood Count 5.71 # Red Cell Distribution Width 23.9 H Sodium Level 134 L White Blood Count 5.5 Medications Medications Current Medications Morphine Sulfate (morphine) 4 mg Q4H PRN IV pain Last administered on 07:52; Admin Dose 4 MG; Start 04/27/16 at 01:20 Heparin Sodium (Porcine) (Heparin (5000 Units/0.5 ml)) 5,000 unit BID SC Last administered on 04/28/16 21:03; Admin Dose 5,000 UNIT; Start 04/27/16 at 09:00 Clonidine (Catapres) 0.1 mg Q6H PRN PO ELEVATED SYSTOLIC BP Last administered on 04/27/16 03:43; Admin Dose 0.1 MG; Start 04/27/16 at 01:30 Clonazepam (Klonopin) 1 mg QHS PRN PO ANXIETY Last administered on 04/29/16 00 :23; Admin Dose 1 MG; Start 04/27/16 at 04:00 Metoclopramide HCl (Reglan) 10 mg DAILY PRN PO NAUSEA AND/OR VOMITING Last administered on 04/29/16 02:08; Admin Dose 10 MG; Start 04/27/16 at 04:00 Ranitidine HCl (Zantac) 150 mg DAILY PO Last administered on 04/29/16 08:24; Admin Dose 150 MG; Start 04/27/16 at 09:00 Oxycodone HCl (Roxicodone) 15 mg BID PRN PO PAIN Last administered on 00:40; Admin Dose 15 MG; Start 04/27/16 at 04:42 Lisinopril (Zestril) 40 mg DAILY PO Last administered on 04/29/16 08:24; Admin Dose 40 MG; Start 04/27/16 at 06:00 Amlodipine Besylate (Norvasc) 10 mg DAILY PO Last administered on 04/29/16 08: 24; Admin Dose 10 MG; Start 04/27/16 at 06:00 Minoxidil (Loniten) 10 mg DAILY PO Last administered on 04/29/16 08:24; Admin Dose 10 MG; Start 04/27/16 at 06:00 Nifedipine (Procardia Xl) 60 mg DAILY PO Last administered on 04/29/16 08:23; Admin Dose 60 MG; Start 04/27/16 at 06:00 Hydralazine HCl (Apresoline) 10 mg Q4H PRN IV SBP >160 Last administered on 00:44; Admin Dose 10 MG; Start 04/27/16 at 08:30 KODY PHILLIP Apr 29, 2016 11:49
--- NOTE | 2016-04-29 13:31 | CONS ---
Date/Time of Note Date/Time of Note DATE: 04/29/16 TIME: 13:23 Assessment/Plan Assessment/Plan Additional Assessment/Plan Sinus tachycardia End-stage renal disease on hemodialysis Hypertension Liver cirrhosis Hemodialysis medication noncompliance Marijuana use -Patient with recurrent episodes of tachycardia noted on telemetry here sinus area patient remains asymptomatic. On review of medications, patient on multiple vasodilatory medications and adverse reactions could be tachycardia including minoxidil and hydralazine. Would consider adjusting antihypertensive medication regimen by stopping minoxidil initially and if blood pressure remains elevated, would increase other medications or add Coreg. Would adjust lisinopril to twice a day dosing for better 24-hour blood pressure coverage. Would check echocardiogram. Consultation Date/Type/Reason Admit Date/Time Apr 26, 2016 at 21:51 Type of Consultation: cv Reason for Consultation Tachycardia Hx of Present Illness This is a 45-year-old male with past medical history of end-stage renal disease on hemodialysis, hypertension, active marijuana use who presents with increased abdominal distention and shortness of breath after missing dialysis sessions. Patient was dialyzed as well as underwent paracentesis. Still significantly better with no shortness of breath and improved abdominal discomfort. Patient with recurrent episodes of sinus tachycardia on telemetry and for this reason cardiology consultation was requested. Patient denies any chest pain, dizziness or lightheadedness. Denies any syncope or near-syncope. 12 point review of systems was performed with all pertinent positives and negatives mentioned above and all else is negative Constitutional: no complaints Past Medical History Medical History: hypertension, renal disease, other (cirrhosis) Past Surgical History Past Surgical Hx: other (AV fistula) Family History Significant Family History: no pertinent family hx Social History Alcohol Use: sober Smoking Status: Current every day smoker Drug Use: marijuana Exam/Review of Systems Vital Signs Vitals Vital Signs Date Time Temp Pulse Resp B/P Pulse Ox O2 Delivery O2 Flow Rate FiO2 04/29/16 13:20 115 04/29/16 11:52 98.3 19 134/92 98 04/27/16 06:17 Room Air 04/27/16 00:21 21 Intake and Output 04/28/16 04/28/16 04/29/16 15:00 23:00 07:00 Intake Total 500 ml 850 ml Output Total 3500 ml 3000 ml Balance -3000 ml -2150 ml Exam No apparent distress Constitutional: alert, oriented Head: normocephalic Neck: supple Respiratory: other (course breath sounds bilaterally and decrease at the bilateral bases, no wheezing) Cardiovascular: other (S1 and S2 heard), regular rate and rhythm, systolic murmur Gastrointestinal: bowel sounds, distended, non-tender, other (no guarding), soft Extremities: edema (trace), other (AV fistula left upper extremity) Results Result Diagram: 04/29/16 0912 04/29/16 0912 Results 24 hrs Laboratory Tests Test 04/29/16 09:12 Anion Gap 18 H Basophils # 0.2 H Basophils % 3.0 H Blood Morphology Comment Blood Urea Nitrogen 36 #H Calcium Level 9.1 Carbon Dioxide Level 28 Chloride Level 93 L Creatinine 7.82 H Eosinophils # 0.2 Eosinophils % 4.0 Glucose Level 92 Hematocrit 38.2 #L Hemoglobin 12.1 #L Lymphocytes # 1.8 Lymphocytes % 33.0 Mean Corpuscular Hemoglobin 21.2 L Mean Corpuscular Hemoglobin Concent 31.7 L Mean Corpuscular Volume 66.9 L Mean Platelet Volume 8.6 Monocytes # 0.4 Monocytes % 8.0 Neutrophils # 2.9 Neutrophils % 52.0 Platelet Count 215 Potassium Level 4.8 Red Blood Count 5.71 # Red Cell Distribution Width 23.9 H Sodium Level 134 L White Blood Count 5.5 Medications Medications Current Medications Morphine Sulfate (morphine) 4 mg Q4H PRN IV pain Last administered on 07:52; Admin Dose 4 MG; Start 04/27/16 at 01:20 Heparin Sodium (Porcine) (Heparin (5000 Units/0.5 ml)) 5,000 unit BID SC Last administered on 04/28/16 21:03; Admin Dose 5,000 UNIT; Start 04/27/16 at 09:00 Clonidine (Catapres) 0.1 mg Q6H PRN PO ELEVATED SYSTOLIC BP Last administered on 04/27/16 03:43; Admin Dose 0.1 MG; Start 04/27/16 at 01:30 Clonazepam (Klonopin) 1 mg QHS PRN PO ANXIETY Last administered on 04/29/16 00 :23; Admin Dose 1 MG; Start 04/27/16 at 04:00 Metoclopramide HCl (Reglan) 10 mg DAILY PRN PO NAUSEA AND/OR VOMITING Last administered on 04/29/16 02:08; Admin Dose 10 MG; Start 04/27/16 at 04:00 Ranitidine HCl (Zantac) 150 mg DAILY PO Last administered on 04/29/16 08:24; Admin Dose 150 MG; Start 04/27/16 at 09:00 Oxycodone HCl (Roxicodone) 15 mg BID PRN PO PAIN Last administered on 00:40; Admin Dose 15 MG; Start 04/27/16 at 04:42 Lisinopril (Zestril) 40 mg DAILY PO Last administered on 04/29/16 08:24; Admin Dose 40 MG; Start 04/27/16 at 06:00 Amlodipine Besylate (Norvasc) 10 mg DAILY PO Last administered on 04/29/16 08: 24; Admin Dose 10 MG; Start 04/27/16 at 06:00 Minoxidil (Loniten) 10 mg DAILY PO Last administered on 04/29/16 08:24; Admin Dose 10 MG; Start 04/27/16 at 06:00 Nifedipine (Procardia Xl) 60 mg DAILY PO Last administered on 04/29/16 08:23; Admin Dose 60 MG; Start 04/27/16 at 06:00 Hydralazine HCl (Apresoline) 10 mg Q4H PRN IV SBP >160 Last administered on 00:44; Admin Dose 10 MG; Start 04/27/16 at 08:30 Procedures Procedures ECG performed April 26 demonstrates sinus rhythm at 83 bpm, QRS 84 ms, no significant ischemic STT wave abnormalities Telemetry reviewed with sinus rhythm ranging from 100-120 and sinus tachycardia Arnol Harrison DO Apr 29, 2016 13:31
--- NOTE | 2016-04-29 15:20 | RADRPT ---
Echocardiogram Report Patient Name: JANET FABIAN Gender: Male Date: 1970 Study Date: 29-Apr-2016 Industrial Engineering Intern: [facility] Location: [id number] Ref. Physician: KODY PHILLIP Quality: Adequate Procedures: Transthoracic echocardiogram with complete 2D, M-Mode, and doppler examination. Indications: Tachycardia. 2D/M Mode Doppler Measurement Value Normal Ranges Measurement Value Normal Ranges LVIDd 2D 4.3 3.5 - 5.6 cm AV Mean [place] 1.2 m/sec LVIDs 2D 3.3 2.1 - 4.1 cm AV Mean PG 7.0 mmHg FS 2D 23.1 % AV Peak [place] 2.0 m/sec LVPWd 2D 2.2 0.6 - 1.1 cm AV Peak PG 15.0 mmHg IVSd 2D 2.3 0.6 - 1.1 cm AV VTI 30.8 cm IVS/LVPW 2D 1.1 LVOT Peak [place] 1.6 m/sec AoR Diam 2D 3.2 2.0 - 3.7 cm LVOT Peak PG 10.0 mmHg LA/Ao 2D 2 0 - 1 MV E Peak [place] 1.6 m/sec EDV 2D 80.6 cm3 MR Peak PG 89.0 mmHg ESV 2D 36.6 cm3 MR Peak [place] 4.7 m/sec LA Dimen 2D 5.4 2.3 - 4.0 cm TR Peak [place]on[place] 3.6 m/sec TR Peak PG 53.0 mmHg Findings Left Ventricle: Normal left ventricular systolic function. Normal left ventricular cavity size. Severe concentric left ventricular hypertrophy. Ejection fraction is visually estimated at 65 %. Abnormal Diastolic Function. Right Ventricle: Normal right ventricular size. Mild right ventricular systolic dysfunction. Left Atrium: There is moderate enlargement of left atrium. Right Atrium: There is moderate enlargement of right atrium. Mitral Valve: Mild mitral leaflet calcification. Moderate mitral valve regurgitation. Aortic Valve: Normal appearance of the aortic valve. No significant aortic stenosis or insufficiency. Tricuspid Valve: Estimated peak PA systolic pressure 61 mmHg. Tricuspid valve appears mildly thickened. There is moderate tricuspid regurgitation. Pulmonic Valve: Pulmonic valve not well visualized. There is trace pulmonic regurgitation. Pericardium: Normal pericardium with no significant pericardial effusion. Pleural effusion seen. Aorta: Normal aortic root. IVC: Dilated IVC with respiratory collapse consistent with elevated right atrial pressure. Conclusions 1.Normal left ventricular systolic function. Normal left ventricular cavity size. Severe concentric left ventricular hypertrophy. Ejection fraction is visually estimated at 65 %. Abnormal Diastolic Function. 2.Normal right ventricular size. Mild right ventricular systolic dysfunction. 3.There is moderate enlargement of left atrium. 4.There is moderate enlargement of right atrium. 5.Moderate mitral valve regurgitation. 6.Estimated peak PA systolic pressure 61 mmHg. There is moderate tricuspid regurgitation. 7.No significant aortic stenosis or insufficiency. 8.Normal pericardium with no significant pericardial effusion. Pleural effusion seen. Electronically Signed By: Arnol Harrison 29-Apr-2016 15:20:03 -0800 Patient Name: JANET FABIAN Study Date: 29-Apr-[id number]
--- NOTE | 2016-04-29 16:13 | DS ---
Date/Time of Note Date/Time of Note DATE: 04/29/16 TIME: 16:12 Discharge Summary Admission/Discharge Info Admit Date/Time Apr 26, 2016 at 21:51 Discharge Date/Time Final Diagnosis pt left AMA after being tx for HTN urgency, fluid overload, he received HD 2 times before leaving AMA. Hx of Present Illness Patient is a 45 yo male with hx of HTN, ESRD on HD, Cirrhosis and neuropathy who presented to ER complaining of abd distention and bilateral lower ext swelling. He said last HD was a week ago. He said he gets paracentesis every 2 weeks. He came from [place] recently and said will stay for 2 weeks here before going back. He was admitted here last year for similar presentation after coming from [place] and missing dialysis. When pt came to ER today, he was found to have a K+ of 7, BUN 97, cr 15. Blood pressure has consistently been elevated with SBP > 200. . Hospital Course This is a 45-year-old male with past medical history of end-stage renal disease on hemodialysis, hypertension, active marijuana use who presents with increased abdominal distention and shortness of breath after missing dialysis sessions. Patient was dialyzed as well as underwent paracentesis. Still significantly better with no shortness of breath and improved abdominal discomfort. Patient with recurrent episodes of sinus tachycardia on telemetry and for this reason cardiology consultation was requested. Patient denies any chest pain, dizziness or lightheadedness. Denies any syncope or near-syncope. Home Meds Active Scripts Ondansetron Hcl* (Zofran*) 4 Mg Tablet, 4 MG PO Q8 for 30 Days, TAB 2 Refills Prov:KODY PHILLIP S. 04/16/15 Metoclopramide* (Reglan*) 10 Mg Tablet, 10 MG PO DAILY for 30 Days, TAB Prov:VINEET PHILLIPP S. 04/16/15 Ranitidine Hcl* (Ranitidine Hcl*) 150 Mg Tablet, 150 MG PO Q12 for 30 Days, TAB 2 Refills Prov:KODY PHILLIP S. 04/16/15 Minoxidil* (Lonitin*) 10 Mg Tab, 10 MG PO DAILY for 30 Days, TAB 2 Refills Prov:KODY PHILLIP S. 04/16/15 Amlodipine Besylate* (Norvasc*) 10 Mg Tablet, 10 MG PO DAILY for 30 Days, TAB 2 Refills Prov:KODY PHILLIP S. 04/16/15 Nifedipine* (Nifedical XL*) 60 Mg/Bottle Tab.osm.24, 60 MG PO DAILY for 30 Days , TAB 2 Refills Prov:KODY PHILLIP S. 04/16/15 Lisinopril* (Lisinopril*) 40 Mg Tablet, 40 MG PO DAILY, #30 TAB Prov:KODY PHILLIP S. 04/16/15 Hydralazine Hcl* (Hydralazine Hcl*) 100 Mg Tablet, 100 MG PO BID, #90 TAB Prov:KODY PHILLIP S. 04/16/15 Clonazepam* (Clonazepam*) 1 Mg Tablet, 1 MG PO QHS Y for ANXIETY for 30 Days, TAB Prov:KODY PHILLIP S. 04/16/15 Reported Medications Oxycodone Hcl* (IR) (Oxycodone Hcl*) 15 Mg Tablet, 15 MG PO BID Y for PAIN, TAB 04/26/16 Discontinued Reported Medications Oxycodone Hcl-Acetaminophen* (Percocet*) 2.5-325 Mg Tablet, 1 TAB PO BID Y for SEVERE PAIN LEVEL 7-10, TAB 04/14/15 Discontinued Scripts Sertraline Hcl* (Sertraline Hcl*) 50 Mg Tablet, 50 MG PO DAILY, #30 TAB Prov:KODY PHILLIP S. 04/16/15 Gabapentin* (Gabapentin*) 600 Mg Tablet, 600 MG PO TID, #90 TAB Prov:KODY PHILLIP S. 04/16/15 Pending Labs Laboratory Tests Test 04/29/16 09:12 04/29/16 13:30 Anion Gap 18 (8-16) Basophils # 0.210^3/ul (0.0-0.1) Basophils % 3.0% (0.0-2.0) Blood Morphology Comment Blood Urea Nitrogen 36mg/dl (7-20) Calcium Level 9.1mg/dl (8.4-10.2) Carbon Dioxide Level 28mmol/L (21-31) Chloride Level 93mmol/L (97-110) Creatinine 7.82mg/dl (0.61-1.24) Eosinophils # 0.210^3/ul (0.0-0.5) Eosinophils % 4.0% (0.0-7.0) Glucose Level 92mg/dl (70-220) Hematocrit 38.2% (42.0-52.0) Hemoglobin 12.1g/dl (14.0-18.0) Lymphocytes # 1.810^3/ul (0.8-2.9) Lymphocytes % 33.0% (15.0-51.0) Mean Corpuscular Hemoglobin 21.2pg (29.0-33.0) Mean Corpuscular Hemoglobin Concent 31.7g/dl (32.0-37.0) Mean Corpuscular Volume 66.9fl (82.0-101.0) Mean Platelet Volume 8.6fl (7.4-10.4) Monocytes # 0.410^3/ul (0.3-0.9) Monocytes % 8.0% (0.0-11.0) Neutrophils # 2.910^3/ul (1.6-7.5) Neutrophils % 52.0% (39.0-77.0) Platelet Count 32312^3/UL (140-440) Potassium Level 4.8mmol/L (3.5-5.1) Red Blood Count 5.7110^6/ul (4.70-6.10) Red Cell Distribution Width 23.9% (11.5-14.5) Sodium Level 134mmol/L (135-144) White Blood Count 5.510^3/ul (4.8-10.8) Troponin I 0.102ng/ml (0.00-0.12) KODY PHILLIP Apr 29, 2016 16:13
--- NOTE | 2016-04-29 20:41 | PN ---
DATE: SUBJECTIVE: The patient is feeling better. OBJECTIVE: VITAL SIGNS: Stable. NECK: Supple. LUNGS: Clear. CARDIOVASCULAR: S1, S2 normal. ABDOMEN: Soft. Ascites mild. EXTREMITIES: No edema. LABORATORY DATA: Hematocrit 38.2. Potassium 4.8. IMPRESSION: 1. Chronic kidney disease. 2. Hypertension. 3. End-stage renal disease. 4. The patient's other diagnoses include the patient has anemia. Plan at this point is to continue to do dialysis as long as patient is hospitalized. Dictated By: TERE REIS MD BS/NTS Conf#: [id number] DID#: [id number]
[2016-04-29] MEDS ORDERED: LISINOPRIL 20 MG TAB PO SCH (21:00)
== END 2016-04-29 17:07 | disposition left against medical advice (07) | DRG 304 ==
LOC: E/R 17:39 → TEL 21:51
PROVIDERS: ADMIT Internal Medicine; ATTEND Internal Medicine
PROC: 0W9G3ZZ Drainage of Peritoneal Cavity, Percutaneous Approach (ICD-10-PCS; principal; 2016-04-27)
PROC: 5A1D60Z (ICD-10-PCS; 2016-04-27)
DX: I16.0 Hypertensive urgency (principal); N18.6 End stage renal disease; R18.8 Other ascites; K74.60 Unspecified cirrhosis of liver; E87.70 Fluid overload, unspecified; E87.5 Hyperkalemia; I12.0 Hypertensive chronic kidney disease with stage 5 chronic kidney disease or end stage renal disease; I25.10 Atherosclerotic heart disease of native coronary artery without angina pectoris; D64.9 Anemia, unspecified; G62.9 Polyneuropathy, unspecified; Z99.2 Dependence on renal dialysis; Z91.19 Patient's noncompliance with other medical treatment and regimen
CPT/HCPCS: 36415; 71010; 80048; 80053; 80061; 83036; 83690; 84484; 85025; 85610; 85730; 87081; 90935; 93005; 93306; 94664; 96374; 96375; 96376; J0360; J0610; J1170; J1815; J2270

== ENCOUNTER 2016-04-30 19:58 | Observation (INO) | payer OTHER ==
[~2016-04-30] VITALS: Ht 172.7 cm; Wt 79.0 kg
[~2016-04-30 19:58] MED LIST changes: -GABA-526 PO; -OXYC-282 PO; +OXYC15TA PO; -SERT50TA6 PO
[2016-04-30 22:00] VITALS: TEMP 98.3
[2016-04-30 22:41] LABS: ALBUMIN 3.3 g/dl (3.3-4.9)
[2016-04-30 22:42] LABS: POTASSIUM 5.4 mmol/L (3.5-5.1)
[2016-04-30 22:44] LABS: ALBUMIN/GLOBULIN RATIO 1.06; CREATININE 10.51 mg/dl (0.61-1.24); TOTAL PROTEIN 6.4 g/dl (6.1-8.1)
[2016-04-30 22:45] LABS: CALCIUM 8.4 mg/dl (8.4-10.2)
[2016-04-30 22:46] LABS: CONDITION 1; HEMATOCRIT 31.6 % (42.0-52.0); HEMOGLOBIN 10.1 g/dl (14.0-18.0); LH ANALYZER COMMENTS 1; MEAN CORPUSCULAR HEMOGLOBIN 21.2 pg (29.0-33.0); MEAN CORPUSCULAR HGB CONC 32.1 g/dl (32.0-37.0); MEAN CORPUSCULAR VOLUME 66.1 fl (82.0-101.0); MEAN PLATELET VOLUME 8.2 fl (7.4-10.4); PLATELET COUNT 267 10^3/UL (140-440); RED BLOOD COUNT 4.77 10^6/ul (4.70-6.10); RED CELL DISTRIBUTION WIDTH 24.6 % (11.5-14.5); UNCORRECTED WBC 6.3 10^3/ul (4.8-10.8); WHITE BLOOD COUNT 6.3 10^3/ul (4.8-10.8)
[2016-04-30 22:47] LABS: INR 0.97; PROTIME 12.9 Sec (12.2-14.2)
[2016-04-30 22:48] LABS: PARTIAL THROMBOPLASTIN TIME 31.5 Sec (25.0-35.0)
[2016-04-30] MEDS ORDERED: ONDANSETRON 4 MG INJ IV PRN (23:30)
[2016-04-30] MEDS ORDERED: ACETAMINOPHEN 325 MG TAB PO PRN (23:30)
[2016-04-30 23:49] LABS: MAGNESIUM 2.2 mg/dl (1.7-2.5); PHOSPHORUS 5.9 mg/dl (2.5-4.9)
--- NOTE | 2016-04-30 23:51 | RADRPT ---
PROCEDURE: XR Chest. CLINICAL INDICATION: Dyspnea. TECHNIQUE: Single frontal view of the chest was obtained COMPARISON: 04/26/2016 FINDINGS: Cardiomegaly. There is mild pulmonary vascular congestion. The lungs otherwise clear. Previously seen left mid jaxon ng atelectasis versus infiltrate is resolved. There is improved aeration in bilateral lungs over in terval. There is no pleural effusion or pneumothorax. IMPRESSION: Cardiomegaly and mild pulmonary vascular congestion, and otherwise, there is improved aeration in bi lateral lungs over interval. RPTAT: [facility] Physician Quinn Date Time Electronically viewed and signed by Physician Quinn on 04/30/2016 23:51 RS/
[2016-05-01] VITALS (15 sets, daily range): BP systolic 100–144; BP diastolic 52–92; PULSE 78–126; RESP 18–24; Ht 172.7 cm; Wt 79.0 kg
[2016-05-01] MEDS ORDERED: DIPH25CA6 PO (00:53)
[2016-05-01] MEDS ORDERED: CARV6.2579 PO (00:54)
[2016-05-01] MEDS ORDERED: GABA-526 PO (00:54)
[2016-05-01] MEDS ORDERED: METO5TAB58 PO (00:57)
[2016-05-01] MEDS ORDERED: CALC667T2 PO (00:59)
[2016-05-01] MEDS ORDERED: SERT50TA6 PO (01:00)
[2016-05-01] MEDS ORDERED: oxyCODONE 15 MG TAB PO PRN (01:30)
[2016-05-01] MEDS ORDERED: hydrALAzine 20 MG INJ IV PRN (01:30)
[2016-05-01] MEDS ORDERED: METOCLOPRAMIDE 10 MG INJ IV PRN ×2 (01:30)
[2016-05-01] MEDS ORDERED: DIPHENHYDRAMINE 25 MG CAP PO PRN (01:30)
[2016-05-01 01:32] LABS: LYMPHOCYTES # 1.9 10^3/ul (0.8-2.9); MONOCYTE # 0.4 10^3/ul (0.3-0.9)
--- NOTE | 2016-05-01 01:35 | ERA ---
ER Documentation Chief Complaint Date/Time DATE: 05/01/16 TIME: 01:26 Chief Complaint abd pain, disteneded abd, hx- cirrhosis, dialysis pt HPI 45-year-old male with a history of cirrhosis and end-stage renal disease on hemodialysis presenting requesting a "stomach tap" and dialysis. The patient is very agitated on exam and refuses to answer my questions. He states that I should just know what is going on. He states that I should look up his records instead of asking him questions. He complains of abdominal pain. He is unable to describe and he is unable to tell me how long he has had it. He denies any fevers or chills. His last dialysis was 2 days ago while he was in the hospital. He was discharged yesterday. He states he is from [place] and does not have an established hemodialysis center here in [place]. He refuses to answer any other questions. ROS Limited as the patient is noncompliant with answering questions Medications Home Meds Active Scripts Ondansetron Hcl* (Zofran*) 4 Mg Tablet, 4 MG PO Q8 for 30 Days, TAB 2 Refills Prov:KODY PHILLIP S. 04/16/15 Metoclopramide* (Reglan*) 10 Mg Tablet, 10 MG PO DAILY for 30 Days, TAB Prov:KODY PHILLIP S. 04/16/15 Ranitidine Hcl* (Ranitidine Hcl*) 150 Mg Tablet, 150 MG PO Q12 for 30 Days, TAB 2 Refills Prov:KODY PHILLIP S. 04/16/15 Minoxidil* (Lonitin*) 10 Mg Tab, 10 MG PO DAILY for 30 Days, TAB 2 Refills Prov:KODY PHILLIP S. 04/16/15 Nifedipine* (Nifedical XL*) 60 Mg/Bottle Tab.osm.24, 60 MG PO DAILY for 30 Days , TAB 2 Refills Prov:KODY PHILLIP S. 04/16/15 Hydralazine Hcl* (Hydralazine Hcl*) 100 Mg Tablet, 100 MG PO BID, #90 TAB Prov:KODY PHILLIP S. 04/16/15 Clonazepam* (Clonazepam*) 1 Mg Tablet, 1 MG PO QHS Y for ANXIETY for 30 Days, TAB Prov:KODY PHILLIP S. 04/16/15 Reported Medications Sertraline Hcl* (Sertraline Hcl*) 50 Mg Tablet, 50 MG PO DAILY, #30 TAB 05/01/16 Calcium Acetate* (Phoslo*) 667 Mg Tablet, 667 MG PO WITH MEALS, TAB 05/01/16 Metoclopramide* (Reglan*) 5 Mg Tablet, 5 MG PO DAILY, TAB 05/01/16 Gabapentin* (Gabapentin*) 600 Mg Tablet, 600 MG PO TID, #90 TAB 05/01/16 Carvedilol* (Carvedilol*) 6.25 Mg Tablet, 6.25 MG PO BID, #60 TAB 05/01/16 Diphenhydramine Hcl* (Diphenhydramine Hcl*) 25 Mg Capsule, 25 MG PO Q6 Y for ITCHING, CAP 05/01/16 Oxycodone Hcl* (IR) (Oxycodone Hcl*) 15 Mg Tablet, 15 MG PO BID Y for PAIN, TAB 04/26/16 Discontinued Reported Medications Oxycodone Hcl-Acetaminophen* (Percocet*) 2.5-325 Mg Tablet, 1 TAB PO BID Y for SEVERE PAIN LEVEL 7-10, TAB 04/14/15 Discontinued Scripts Amlodipine Besylate* (Norvasc*) 10 Mg Tablet, 10 MG PO DAILY for 30 Days, TAB 2 Refills Prov:KODY PHILLIP S. 04/16/15 Lisinopril* (Lisinopril*) 40 Mg Tablet, 40 MG PO DAILY, #30 TAB Prov:KODY PHILLIP S. 04/16/15 Sertraline Hcl* (Sertraline Hcl*) 50 Mg Tablet, 50 MG PO DAILY, #30 TAB Prov:KODY PHILLIP S. 04/16/15 Gabapentin* (Gabapentin*) 600 Mg Tablet, 600 MG PO TID, #90 TAB Prov:KODY PHILLIP S. 04/16/15 Allergies Allergies: Coded Allergies: No Known Allergy (Unverified , 04/26/16) PMhx/Soc History of Surgery: Yes (cholecystectomy, left forarm fistula placement ) Anesthesia Reaction: No Hx Neurological Disorder: Yes (migraines ) Hx Respiratory Disorders: No Hx Cardiac Disorders: Yes (heart murmur, HTN, abnormal heart rythm ) Hx Psychiatric Problems: Yes (depression ) Hx Miscellaneous Medical Probl: No Hx Alcohol Use: No Hx Substance Use: Yes Hx Tobacco Use: Yes (smokes Marijuana and cigarettes ) Smoking Status: Current every day smoker FmHx Family History: No diabetes Physical Exam Vitals Vital Signs Date Time Temp Pulse Resp B/P Pulse Ox O2 Delivery O2 Flow Rate FiO2 04/30/16 22:00 98.3 102 22 118/77 95 Room Air 04/30/16 20:58 97.8 115 22 130/87 95 Room Air 04/30/16 20:01 97.8 119 20 138/83 97 Physical Exam Const: In mild distress secondary to pain, nontoxic, unkempt Head: Atraumatic Eyes: Normal Conjunctiva ENT: Normal External Ears, Nose and Mouth. Neck: Full range of motion. No meningismus. No JVD Resp: Bibasilar crackles Cardio: Regular rate and rhythm, no murmurs Abd: Soft, minimal epigastric tenderness, no rebound or guarding, mild ascites,, non distended. Normal bowel sounds Skin: No petechiae or rashes Back: No midline or flank tenderness Ext: No cyanosis, or edema. Left upper extremity fistula with thrill Neur: Awake and alert Psych: Agitated Mood and Affect, confrontational Result Diagram: 04/30/16220904/30/162209 Results 24 hrs Laboratory Tests Test 04/30/16 22:10 Activated Partial Thromboplast Time 31.5Sec Alanine Aminotransferase (ALT/SGPT) 23IU/L Albumin 3.3g/dl Albumin/Globulin Ratio 1.06 Alkaline Phosphatase 84IU/L Anion Gap 19 Aspartate Amino Transf (AST/SGOT) 17IU/L Blood Morphology Comment Blood Urea Nitrogen 49mg/dl Calcium Level 8.4mg/dl Carbon Dioxide Level 32mmol/L Chloride Level 94mmol/L Creatinine 10.51mg/dl Direct Bilirubin 0.00mg/dl Globulin 3.10g/dl Glucose Level 95mg/dl Hematocrit 31.6% Hemoglobin 10.1g/dl INR International Normalized Ratio 0.97 Indirect Bilirubin 0.0mg/dl Lipase 112U/L Magnesium Level 2.2mg/dl Mean Corpuscular Hemoglobin 21.2pg Mean Corpuscular Hemoglobin Concent 32.1g/dl Mean Corpuscular Volume 66.1fl Mean Platelet Volume 8.2fl Phosphorus Level 5.9mg/dl Platelet Count 36255^3/UL Potassium Level 5.4mmol/L Prothrombin Time 12.9Sec Prothrombin Time Ratio 1.0 Red Blood Count 4.7710^6/ul Red Cell Distribution Width 24.6% Sodium Level 140mmol/L Total Bilirubin 0.0mg/dl Total Protein 6.4g/dl White Blood Count 6.310^3/ul Procedures/MDM Patient is presenting requesting hemodialysis. He was supposed to have dialysis today but does not have established care as an outpatient in [place] for dialysis. He is complaining of shortness of breath. I do not suspect acute coronary syndrome, pulmonary embolism, or pneumonia. I suspect his shortness of breath is secondary to fluid overload. His labs showed mild hyperkalemia and hyperphosphatemia. On my evaluation, the patient does not need a paracentesis at this time. However he will need hemodialysis for his volume overload. Patient will be admitted for hemodialysis as his electrolyte abnormalities, although not critical right now, will inevitably become critically abnormal within the next day. Departure Diagnosis: Primary Impression: Hyperkalemia Additional Impressions: Hyperphosphatemia Dyspnea Qualified Code: R06.02 - Shortness of breath Chronic kidney disease Qualified Code: N18.9 - Chronic kidney disease, unspecified stage Condition: KIRILL Garcia MD May 01, 2016 01:35
[2016-05-01] MEDS: morphine 4 MG/ML VIAL IV PRN ×2 (01:42→23:30)
[2016-05-01] MEDS: clonAZEPAM 0.5 MG TAB PO PRN ×2 (02:41→21:30)
--- NOTE | 2016-05-01 06:34 | HP ---
Date/Time of Note Date/Time of Note DATE: 05/01/16 TIME: 06:24 Assessment/Plan VTE Prophylaxis VTE Prophylaxis Intervention: SCD's Lines/Catheters IV [facility]from [facility] Saline Lock Urinary Cath still in place: No Assessment/Plan Assessment/Plan IMPRESSION 1. Hyperkalemia, 2/2 missing dialysis 2. ESRD on HD 3. Decompensated Liver Cirrhosis with ascites: had paracentesis 3 days ago here with removal of 3.5L 4. Hypertensive Urgency PLAN - Nephrology consult for dialysis - Give a dose of kayexalate since he received none in ER - Cont home anti-hypertensive meds and add/adjust dose for better BP control - Repeat paracentesis based on clinical course, last one 3 days ago with removal of 3.5L - Since pt still makes urine, his home meds should include lasix and if he is to get dialysis regularly(so as not to run into problem with hyperkalemia), Aldactone as well. This way, he may not need paracentesis [id number] HPI/ROS Admit Date/Time Admit Date/Time Apr 30, 2016 at 23:16 Hx of Present Illness Patient is a 45 yo male with hx of HTN, ESRD on HD, Cirrhosis and neuropathy who presented to ER complaining of abd distention and bilateral lower ext swelling. pt was just admitted here recently for same issue and was dialyzed and had paracentesis. Pt however left AMA. During last hospitalization, he said his last HD was a week ago and that he gets paracentesis every 2 weeks. He came from [place] recently and said would stay for 2 weeks here before going back. He was admitted here last year for similar presentation after coming from [place] and missing dialysis. When pt came to ER today, his K= was 5.4 as supposed to K+ of 7 during recent admission.pt only received zofran and tylenol in ER. PMH/Family/Social Past Medical History Medical History: high cholesterol, renal disease, other (cirrhosis) Past Surgical History Past Surgical Hx: other (AV fistula) Social History Alcohol Use: occasionally Smoking Status: Current every day smoker Drug Use: other (quit) Exam/Review of Systems Vital Signs Vitals Vital Signs Date Time Temp Pulse Resp B/P Pulse Ox O2 Delivery O2 Flow Rate FiO2 05/01/16 01:30 Room Air 05/01/16 00:37 98.0 108 18 131/88 98 Intake and Output 04/30/16 04/30/16 05/01/16 15:00 23:00 07:00 Intake Total 1040 ml Output Total 125 ml Balance 915 ml Exam Exam Constitutional: alert, oriented, well developed Head: atraumatic, normocephalic Eyes: EOMI, PERRL Respiratory: clear to auscultation, normal air movement Cardiovascular: other (tachycardic with regular rhythm) Gastrointestinal: distended, tender Extremities: edema Labs Result Diagram: 04/30/160 04/30/16 221 Medications Medications Current Medications Carvedilol (Coreg) 6.25 mg BID PO ; Start 05/01/16 at 09:00 Clonazepam (Klonopin) 1 mg QHS PRN PO ANXIETY Last administered on 05/01/16 02 :41; Admin Dose 1 MG; Start 05/01/16 at 01:30 Diphenhydramine HCl (Benadryl) 25 mg Q6 PRN PO ITCHING; Start 05/01/16 at 01:30 Gabapentin (Neurontin) 600 mg TID PO ; Start 05/01/16 at 09:00 Hydralazine HCl (Apresoline) 100 mg BID PO ; Start 05/01/16 at 09:00 Minoxidil (Loniten) 10 mg DAILY PO ; Start 05/01/16 at 09:00 Nifedipine (Procardia Xl) 60 mg DAILY PO ; Start 05/01/16 at 09:00 Oxycodone HCl (Roxicodone) 15 mg BID PRN PO PAIN; Start 05/01/16 at 01:30 Ranitidine HCl (Zantac) 150 mg Q12 PO ; Start 05/01/16 at 09:00 Sertraline HCl (Zoloft) 50 mg DAILY PO ; Start 05/01/16 at 09:00 Hydralazine HCl (Apresoline) 10 mg Q4H PRN IV SBP >160; Start 05/01/16 at 01:30 Heparin Sodium (Porcine) (Heparin (5000 Units/0.5 ml)) 5,000 unit BID SC ; Start 05/01/16 at 09:00 Morphine Sulfate (morphine) 3 mg Q4H PRN IV pain Last administered on 01:42; Admin Dose 3 MG; Start 05/01/16 at 01:30 Metoclopramide HCl (Reglan) 10 mg Q6H PRN IV nausea and vomiting ; Start at 01:30 JARRED ABRAHAM MD May 01, 2016 06:34
[2016-05-01] MEDS ORDERED: NA POLYST SULFON 15 GM/60 ML BTL PO ONE (07:00)
[2016-05-01] MEDS: HEPARIN 5,000 UNIT/0.5 ML SYG SC SCH ×2 (09:00→21:00)
[2016-05-01] MEDS: NIFEdipine (XL) 60 MG TAB PO SCH (09:22)
[2016-05-01] MEDS: SERTRALINE 50 MG TAB PO SCH (09:22)
[2016-05-01] MEDS: GABAPENTIN 300 MG CAP PO SCH ×3 (09:22→21:29)
[2016-05-01] MEDS: RANITIDINE 150 MG TAB PO SCH ×2 (09:23→21:29)
[2016-05-01] MEDS: CALCIUM ACETATE 667 MG CAP PO SCH ×3 (09:28→18:33)
[2016-05-01 09:40] LABS: HEMATOCRIT 32.4 % (42.0-52.0); HEMOGLOBIN 10.3 g/dl (14.0-18.0); MEAN CORPUSCULAR HEMOGLOBIN 21.2 pg (29.0-33.0); MEAN CORPUSCULAR HGB CONC 31.7 g/dl (32.0-37.0); MEAN CORPUSCULAR VOLUME 66.8 fl (82.0-101.0); MEAN PLATELET VOLUME 8.4 fl (7.4-10.4); PLATELET COUNT 272 10^3/UL (140-440); RED BLOOD COUNT 4.85 10^6/ul (4.70-6.10); UNCORRECTED WBC 6.7 10^3/ul (4.8-10.8); WHITE BLOOD COUNT 6.7 10^3/ul (4.8-10.8)
[2016-05-01 09:45] LABS: CONDITION 1; LH ANALYZER COMMENTS 1; SUSPECT 1
[2016-05-01 09:54] LABS: ALBUMIN 3.4 g/dl (3.3-4.9)
[2016-05-01 09:55] LABS: POTASSIUM 5.4 mmol/L (3.5-5.1)
[2016-05-01 09:57] LABS: CREATININE 10.74 mg/dl (0.61-1.24)
[2016-05-01 09:58] LABS: ALBUMIN/GLOBULIN RATIO 0.97; CALCIUM 8.5 mg/dl (8.4-10.2); TOTAL PROTEIN 6.9 g/dl (6.1-8.1)
[2016-05-01] MEDS: MINOXIDIL 10 MG TAB PO SCH (10:49)
[2016-05-01] MEDS ORDERED: ALBUTEROL HFA 8 GM INHALER INH PRN (11:00)
--- NOTE | 2016-05-01 11:03 | PN ---
Date/Time of Note Date/Time of Note DATE: 05/01/16 TIME: 10:59 Assessment/Plan VTE Prophylaxis VTE Prophylaxis Intervention: heparin Lines/Catheters IV Catheter Type (from [facility]): Saline Lock Urinary Cath still in place: No Assessment/Plan Chief Complaint/Hosp Course Hospitalist service coverage: S: No distress. Dyspnea but no productive cough or chest pain. Subjective chills or fever. Some edema. O: Vital signs stable. PE No pallor JVD Regular, no murmur rub gallop C TAB Bs present, nt, nd, no R/R/G Mild edema, negative Homans. Lt AVf w thrill/bruit. A/P 1. Dyspnea, fluid overload; stable cont HD; and potentially diuretics 2. Nonadherence; returning to [place] some point 3. ESRD/cont hd 4. Cirrhosis; Etio? 5. Htn 6. Tobacco abuse/marijuana/possible alcoholism Problems: Exam/Review of Systems Vital Signs Vitals Vital Signs Date Time Temp Pulse Resp B/P Pulse Ox O2 Delivery O2 Flow Rate FiO2 05/01/16 07:12 97.7 106 24 144/92 100 05/01/16 01:30 Room Air Intake and Output 04/30/16 04/30/16 05/01/16 15:00 23:00 07:00 Intake Total 1040 ml Output Total 125 ml Balance 915 ml Results Result Diagram: 05/01/16 0900 05/01/16 0900 Results 24 hrs Laboratory Tests Test 04/30/16 22:10 05/01/16 09:00 Activated Partial Thromboplast Time 31.5 Alanine Aminotransferase (ALT/SGPT) 23 22 Albumin 3.3 3.4 Albumin/Globulin Ratio 1.06 0.97 Alkaline Phosphatase 84 79 Anion Gap 19 H 20 H Aspartate Amino Transf (AST/SGOT) 17 17 Blood Morphology Comment Blood Urea Nitrogen 49 #H 52 H Calcium Level 8.4 8.5 Carbon Dioxide Level 32 H 30 Chloride Level 94 L 95 L Creatinine 10.51 #H 10.74 H Direct Bilirubin 0.00 0.00 Globulin 3.10 3.50 H Glucose Level 95 72 Hematocrit 31.6 L 32.4 L Hemoglobin 10.1 L 10.3 L INR International Normalized Ratio 0.97 Indirect Bilirubin 0.0 0.0 Lipase 112 Lymphocytes # 1.9 Lymphocytes % 30.0 Magnesium Level 2.2 Mean Corpuscular Hemoglobin 21.2 L 21.2 L Mean Corpuscular Hemoglobin Concent 32.1 31.7 L Mean Corpuscular Volume 66.1 L 66.8 L Mean Platelet Volume 8.2 8.4 Monocytes # 0.4 Monocytes % 6.0 Neutrophils # 4.0 Neutrophils % 64.0 Phosphorus Level 5.9 H Platelet Count 267 # 272 Potassium Level 5.4 H 5.4 H Prothrombin Time 12.9 Prothrombin Time Ratio 1.0 Red Blood Count 4.77 4.85 Red Cell Distribution Width 24.6 H 24.0 H Sodium Level 140 140 Total Bilirubin 0.0 L 0.0 L Total Protein 6.4 6.9 White Blood Count 6.3 6.7 Medications Medications Current Medications Carvedilol (Coreg) 6.25 mg BID PO Last administered on 05/01/16 09:23; Admin Dose 6.25 MG; Start 05/01/16 at 09:00 Clonazepam (Klonopin) 1 mg QHS PRN PO ANXIETY Last administered on 05/01/16 02 :41; Admin Dose 1 MG; Start 05/01/16 at 01:30 Diphenhydramine HCl (Benadryl) 25 mg Q6 PRN PO ITCHING; Start 05/01/16 at 01:30 Gabapentin (Neurontin) 600 mg TID PO Last administered on 05/01/16 09:22; Admin Dose 600 MG; Start 05/01/16 at 09:00 Hydralazine HCl (Apresoline) 100 mg BID PO Last administered on 05/01/16 09:23 ; Admin Dose 100 MG; Start 05/01/16 at 09:00 Minoxidil (Loniten) 10 mg DAILY PO Last administered on 05/01/16 10:49; Admin Dose 10 MG; Start 05/01/16 at 09:00 Nifedipine (Procardia Xl) 60 mg DAILY PO Last administered on 05/01/16 09:22; Admin Dose 60 MG; Start 05/01/16 at 09:00 Oxycodone HCl (Roxicodone) 15 mg BID PRN PO PAIN; Start 05/01/16 at 01:30 Ranitidine HCl (Zantac) 150 mg Q12 PO Last administered on 05/01/16 09:23; Admin Dose 150 MG; Start 05/01/16 at 09:00 Sertraline HCl (Zoloft) 50 mg DAILY PO Last administered on 05/01/16 09:22; Admin Dose 50 MG; Start 05/01/16 at 09:00 Hydralazine HCl (Apresoline) 10 mg Q4H PRN IV SBP >160; Start 05/01/16 at 01:30 Heparin Sodium (Porcine) (Heparin (5000 Units/0.5 ml)) 5,000 unit BID SC ; Start 05/01/16 at 09:00 Morphine Sulfate (morphine) 3 mg Q4H PRN IV pain Last administered on 01:42; Admin Dose 3 MG; Start 05/01/16 at 01:30 Metoclopramide HCl (Reglan) 10 mg Q6H PRN IV nausea and vomiting ; Start at 01:30 RONNIE JOLLY MD May 01, 2016 11:03
[2016-05-01 11:31] LABS: EOSINOPHILS # 0.3 10^3/ul (0.0-0.5); LYMPHOCYTES # 2.1 10^3/ul (0.8-2.9); MONOCYTE # 0.4 10^3/ul (0.3-0.9); NEUTROPHIL # 3.8 10^3/ul (1.6-7.5)
--- NOTE | 2016-05-01 14:16 | CONS ---
DATE OF ADMISSION: 04/30/2016 DATE OF CONSULTATION: 05/01/2016 TYPE OF CONSULTATION: Nephrology. REASON FOR CONSULTATION: Maintenance hemodialysis in chronic hemodialysis patient who presented wit h acute hyperkalemia, missed hemodialysis. REFERRING PHYSICIAN: Dr. Andrew An HISTORY OF PRESENT ILLNESS: This is a 45-year-old -[place] male who has a past medical hist ory of hypertension, end-stage renal disease on hemodialysis Monday, and Monday, liver c irrhosis and neuropathy. The patient is originally from [place]. He is visiting family in [place] . The patient stated he was set up for his hemodialysis at the [facility], but the transportation did not come. No one picked him for the dialysis. The patient presented to the [facility] Emergency Room with a complaint of shortness of breath. He did not have hi s hemodialysis done yesterday. He gives a history of paracentesis done 3 days ago with removal of 3 .5 liters. The patient is noted to have hyperkalemia, potassium of 7. He was treated with hyperkal emia in the emergency room and he gets admitted to the med/surg floor for further workup and emergen t hemodialysis. REVIEW OF SYSTEMS: As per HPI. PAST MEDICAL HISTORY: 1. Hypertension, end-stage renal disease on hemodialysis Monday, , Monday. 2. Decompensated liver cirrhosis with ascites with a recent paracentesis done 3 days ago, 3.5 lite rs removed. PAST SURGICAL HISTORY: 1. Left upper extremity AV fistula surgery for dialysis access. 2. Recent paracentesis. SOCIAL HISTORY: No smoking, alcohol or recreational drug use. FAMILY HISTORY: Not available. The patient is originally from [place] and he is visiting family in [place]. PHYSICAL EXAMINATION: VITAL SIGNS: Temperature 97.7, heart rate 106, respirations 24, blood pressure 144/92, saturation 1 00% on room air. GENERAL: Awake, alert, in no distress. HEENT: Normal. Oropharynx clear. NECK: Supple, no JVD, no lymphadenopathy. LUNGS: Clear to auscultation. No crackles, no wheezes. HEART: S1, S2, with regular rhythm, no murmur. ABDOMEN: Soft, tender to palpation, distention, ascites. EXTREMITIES: 1 to 2+ pitting edema. NEUROLOGICAL: Nonfocal, intact. PSYCHIATRIC: Appropriate affect and mood. LABORATORY DATA/DIAGNOSTIC IMAGIN. WBC 6.7, hemoglobin 10.3, platelet count 272. Sodium 140, potassium 5.4, chloride 95, bicarbona te 30, BUN 52, creatinine 10.7, glucose is 72, calcium 8.5. PT 12.9, PTT 31.5, INR 0.97. IMPRESSION: This is a 45-year-old male who presented with: 1. Acute hyperkalemia secondary to missed hemodialysis. 2. End-stage renal disease on hemodialysis Monday, , Monday. 3. The patient is originally from [place]. He is set up for hemodialysis at [facility]. 4. History of hypertension. 5. History of hyperlipidemia. 6. History of decompensated liver cirrhosis with ascites, recent paracentesis 3 days ago, 3.5 liter s removed. 7. Hypertensive emergency. PLAN: 1. Thank you, Dr. Denis for this consultation. I will arrange the patient's hemodialysis today. Co ntinue the other home medications including the hydralazine and Losartan with Minoxidil and Procardi a. 2. The patient's regular schedule for dialysis is Monday, and Monday. He is originally from [place]. We will order the case management consult to help him arrange [place] [facility]. 3. The patient is currently seen in the telemetry floor and he will be followed up along with his c ourse in the hospital. Once again, thank you, Dr. An, for this consultation and I will continue to follow this patient. Dictated By: CAIN HART MD, KP/HUMA Conf#: [id number] DID#: [id number]
[2016-05-01] MEDS ORDERED: ZOLPIDEM 5 MG TAB PO PRN (23:30)
[2016-05-02 06:31] LABS: HAAIG REFLEX REFLEX FILED
[2016-05-02 06:47] LABS: INR 1.04; PROTIME 13.6 Sec (12.2-14.2); PT RATIO 1.1
[2016-05-02 07:05] LABS: ALBUMIN 2.8 g/dl (3.3-4.9); POTASSIUM 5.2 mmol/L (3.5-5.1)
[2016-05-02 07:06] LABS: ADD UMIC YES; URINE BILIRUBIN (Dip) NEGATIVE (NEGATIVE); URINE BLOOD (Dip) NEGATIVE (NEGATIVE); URINE COLOR LT. YELLOW (YELLOW); URINE KETONES (Dip) NEGATIVE (NEGATIVE); URINE LEUKOCYTE ESTERASE (Dip) NEGATIVE (NEGATIVE); URINE NITRITE (Dip) NEGATIVE (NEGATIVE); URINE TOTAL PROTEIN (Dip) 2+ (NEGATIVE); URINE UROBILINOGEN (Dip) 0.2 E.U./dL (0.1-1.0)
[2016-05-02 07:08] LABS: ALBUMIN/GLOBULIN RATIO 0.96; PHOSPHORUS 5.3 mg/dl (2.5-4.9); TOTAL PROTEIN 5.7 g/dl (6.1-8.1)
[2016-05-02 07:09] LABS: CALCIUM 8.1 mg/dl (8.4-10.2); MAGNESIUM 2.1 mg/dl (1.7-2.5)
[2016-05-02 07:17] LABS: URINE RBCS NONE SEEN /HPF (0)
[2016-05-02 07:28] LABS: THYROID STIMULATING HORMONE 1.46 MIU/L (0.465-4.680)
[2016-05-02 07:36] VITALS: BP 125/82; RESP 18
[2016-05-02 08:00] LABS: HEPATITIS B CORE ANTIBODY NEGATIVE (NEGATIVE)
[2016-05-02] MEDS: SERTRALINE 50 MG TAB PO SCH (08:26)
[2016-05-02] MEDS: NIFEdipine (XL) 60 MG TAB PO SCH (08:26)
[2016-05-02] MEDS: RANITIDINE 150 MG TAB PO SCH (08:27)
[2016-05-02] MEDS: CALCIUM ACETATE 667 MG CAP PO SCH ×2 (08:27→12:17)
[2016-05-02] MEDS: GABAPENTIN 300 MG CAP PO SCH ×2 (08:27→12:17)
[2016-05-02] MEDS: MINOXIDIL 10 MG TAB PO SCH (08:27)
[2016-05-02] MEDS: HEPARIN 5,000 UNIT/0.5 ML SYG SC SCH (09:00)
[2016-05-02] MEDS ORDERED: LIDOCAINE 1% (MPF) 5 ML VIAL ONE (09:36)
--- NOTE | 2016-05-02 11:47 | RADRPT ---
PROCEDURE: Ultrasound guided paracentesis. CLINICAL INDICATION: Ascites and shortness of breath. COMPARISON: 04/27/2016. TECHNIQUE: The risks, benefits, and alternatives were explained to the patient, including but not limited to bl eeding, infection, pain, visceral or vascular damage, shock, and . The patient understood the risks and the alternatives and wished to proceed with the procedure. Informed written consent was o btained. A procedural time out was performed. The patient's name, date of , and procedure to b e performed were verified. Utilizing ultrasound guidance, optimal location for entry to the peritoneal cavity was ascertained. The overlying skin was prepped and draped in the usual sterile fashion. Approximately 10 ml of 1% Xylocaine was injected locally for pain control. Using ultrasound guidance, an 8 [place] catheter wa s introduced into the peritoneal cavity in the right lower quadrant without difficulty. FINDINGS: Initial images demonstrate ascites. Approximately 3.25 liters of serous fluid was aspirated and dis carded. The patient tolerated the procedure well without complication. IMPRESSION: 1. Successful ultrasound-guided paracentesis. RPTAT: QQ .Candido Howe MD, MD Date Time Electronically viewed and signed by .Candido Howe MD, on 05/02/2016 11:46 .R/
--- NOTE | 2016-05-02 11:57 | PN ---
Date/Time of Note Date/Time of Note DATE: 05/02/16 TIME: 11:50 Assessment/Plan VTE Prophylaxis VTE Prophylaxis Intervention: SCD's Lines/Catheters IV [facility]ter Type (from [facility] Urinary Cath still in place: No Assessment/Plan Assessment/Plan 1. Hyperkalemia, due to renal failure, kayexalate, HD per nephrology, follow up with K 2. ESRD on HD, TTS 3. Decompensated Liver Cirrhosis with ascites: s/p paracentesis 05/02/2016 4. Hypertensive controlled Subjective 24 Hr Interval Summary Free Text/Dictation feels better, no shortness of breath Exam/Review of Systems Vital Signs Vitals Vital Signs Date Time Temp Pulse Resp B/P Pulse Ox O2 Delivery O2 Flow Rate FiO2 05/02/16 07:36 97.9 99 18 125/82 100 05/01/16 01:30 Room Air Intake and Output 05/01/16 05/01/16 05/02/16 15:00 23:00 07:00 Intake Total 1520 ml 500 ml Output Total 4000 ml Balance -2480 ml 500 ml Exam Constitutional: alert, oriented, well developed Psych: nl mood/affect, no complaints Head: atraumatic, normocephalic Eyes: EOMI, PERRL, nl conjunctiva, nl lids, nl sclera ENMT: nl external ears & nose, nl lips & teeth, nl nasal mucosa & septum Neck: non-tender, supple Respiratory: clear to auscultation, normal air movement, No congested cough, No crackles/rales, No diminished breath sounds, No intercostal retraction, No labored breathing, No respirations, No tactile fremitus, No wheezing Cardiovascular: nl pulses, regular rate and rhythm, No S3, No S4, No bruits, No diastolic murmur, No edema, No gallop, No irregular rhythm, No jugular venous distention (JVD), No murmurs/extra sounds, No rub, No systolic murmur Gastrointestinal: ascites, bowel sounds, distended, nl liver, spleen, soft Musculoskeletal: nl extremities to inspection Extremities: normal pulses Neurological: [employer] II-XII intact, nl mental status, nl speech, nl strength Skin: nl turgor, rash or lesions Lymph: nl lymph nodes Results Result Diagram: 05/01/16 0900 05/02/16 0548 Results 24 hrs Laboratory Tests Test 05/02/16 02:00 05/02/16 05:48 Urine Bilirubin NEGATIVE Urine Clarity CLEAR Urine Color LT. YELLOW Urine Glucose 0.1% H Urine Hemoglobin NEGATIVE Urine Ketones NEGATIVE Urine Leukocyte Esterase NEGATIVE Urine Microscopic RBC NONE SEEN Urine Microscopic WBC 0-2 Urine Nitrite NEGATIVE Urine Specific [place] 1.010 Urine Total Protein 2+ H Urine Urobilinogen 0.2 E.U./dL Urine pH 7.5 Alanine Aminotransferase (ALT/SGPT) 22 Albumin 2.8 L Albumin/Globulin Ratio 0.96 Alkaline Phosphatase 66 Anion Gap 14 Aspartate Amino Transf (AST/SGOT) 19 Blood Urea Nitrogen 37 #H Calcium Level 8.1 L Carbon Dioxide Level 33 H Chloride Level 93 L Creatinine 8.00 #H Direct Bilirubin 0.00 Globulin 2.90 Glucose Level 82 Hepatitis B Core Total Antibody NEGATIVE Hepatitis B Surface Antigen NEGATIVE Hepatitis C Antibody NEGATIVE INR International Normalized Ratio 1.04 Indirect Bilirubin 0.0 Magnesium Level 2.1 Phosphorus Level 5.3 H Potassium Level 5.2 H Prothrombin Time 13.6 Prothrombin Time Ratio 1.1 Sodium Level 135 Thyroid Stimulating Hormone (TSH) 1.460 Total Bilirubin 0.0 L Total Protein 5.7 #L Medications Medications Current Medications Carvedilol (Coreg) 6.25 mg BID PO Last administered on 05/02/16 08:28; Admin Dose 6.25 MG; Start 05/01/16 at 09:00 Clonazepam (Klonopin) 1 mg QHS PRN PO ANXIETY Last administered on 05/01/16 21 :30; Admin Dose 1 MG; Start 05/01/16 at 01:30 Diphenhydramine HCl (Benadryl) 25 mg Q6 PRN PO ITCHING; Start 05/01/16 at 01:30 Gabapentin (Neurontin) 600 mg TID PO Last administered on 05/02/16 08:27; Admin Dose 600 MG; Start 05/01/16 at 09:00 Hydralazine HCl (Apresoline) 100 mg BID PO Last administered on 05/02/16 08:26 ; Admin Dose 100 MG; Start 05/01/16 at 09:00 Minoxidil (Loniten) 10 mg DAILY PO Last administered on 05/02/16 08:27; Admin Dose 10 MG; Start 05/01/16 at 09:00 Nifedipine (Procardia Xl) 60 mg DAILY PO Last administered on 05/02/16 08:26; Admin Dose 60 MG; Start 05/01/16 at 09:00 Oxycodone HCl (Roxicodone) 15 mg BID PRN PO PAIN; Start 05/01/16 at 01:30 Ranitidine HCl (Zantac) 150 mg Q12 PO Last administered on 05/02/16 08:27; Admin Dose 150 MG; Start 05/01/16 at 09:00 Sertraline HCl (Zoloft) 50 mg DAILY PO Last administered on 05/02/16 08:26; Admin Dose 50 MG; Start 05/01/16 at 09:00 Hydralazine HCl (Apresoline) 10 mg Q4H PRN IV SBP >160; Start 05/01/16 at 01:30 Heparin Sodium (Porcine) (Heparin (5000 Units/0.5 ml)) 5,000 unit BID SC ; Start 05/01/16 at 09:00 Morphine Sulfate (morphine) 3 mg Q4H PRN IV pain Last administered on 23:30; Admin Dose 3 MG; Start 05/01/16 at 01:30 Metoclopramide HCl (Reglan) 10 mg Q6H PRN IV nausea and vomiting ; Start at 01:30 Zolpidem Tartrate (Ambien) 10 mg HS PRN PO INSOMNIA; Start 05/01/16 at 23:30 LINDA CADE MD May 02, 2016 11:57
[2016-05-02] MEDS ORDERED: NA POLYST SULFON 15 GM/60 ML BTL PO ONE (12:00)
[2016-05-02 14:29] LABS: POTASSIUM 5.1 mmol/L (3.5-5.1)
[2016-05-02 14:32] LABS: CREATININE 8.53 mg/dl (0.61-1.24)
[2016-05-02 14:33] LABS: CALCIUM 8.5 mg/dl (8.4-10.2)
[2016-05-02] MEDS: morphine 4 MG/ML VIAL IV PRN (14:53)
--- NOTE | 2016-05-02 15:16 | DS ---
Date/Time of Note Date/Time of Note DATE: 05/02/16 TIME: 15:13 Discharge Summary Admission/Discharge Info Admit Date/Time Apr 30, 2016 at 23:16 Discharge Date/Time Final Diagnosis 1. Hyperkalemia, due to renal failure, resolved, HD per nephrology 2. ESRD on HD, TTS 3. Decompensated Liver Cirrhosis with ascites: s/p paracentesis 05/02/2016 4. Hypertensive controlled Patient Condition: Stable Hx of Present Illness Patient is a 45 yo male with hx of HTN, ESRD on HD, Cirrhosis and neuropathy who presented to ER complaining of abd distention and bilateral lower ext swelling. pt was just admitted here recently for same issue and was dialyzed and had paracentesis. Pt however left AMA. During last hospitalization, he said his last HD was a week ago and that he gets paracentesis every 2 weeks. He came from [place] recently and said would stay for 2 weeks here before going back. He was admitted here last year for similar presentation after coming from [place] and missing dialysis. When pt came to ER today, his K= was 5.4 as supposed to K+ of 7 during recent admission.pt only received zofran and tylenol in ER. Hospital Course For hyperkalemia, patient got HD on 05/01/2016, kayexalate. K is down to 5.1 today. For ascites, he got paracentesis on 05/02/2016, abdominal distension improved. Antihypertensives are resumed that controlled his blood pressure. Patient is instructed to follow up with PCP and be compliant with HD. Home Meds Active Scripts Ondansetron Hcl* (Zofran*) 4 Mg Tablet, 4 MG PO Q8 for 30 Days, TAB 2 Refills Prov:VINEET PHILLIPP S. 04/16/15 Metoclopramide* (Reglan*) 10 Mg Tablet, 10 MG PO DAILY for 30 Days, TAB Prov:VINEET PHILLIPP S. 04/16/15 Ranitidine Hcl* (Ranitidine Hcl*) 150 Mg Tablet, 150 MG PO Q12 for 30 Days, TAB 2 Refills Prov:KENJI,KODY S. 04/16/15 Minoxidil* (Lonitin*) 10 Mg Tab, 10 MG PO DAILY for 30 Days, TAB 2 Refills Prov:KODY PHILLIP S. 04/16/15 Nifedipine* (Nifedical XL*) 60 Mg/Bottle Tab.osm.24, 60 MG PO DAILY for 30 Days , TAB 2 Refills Prov:GREG PHILLIPEEP S. 04/16/15 Hydralazine Hcl* (Hydralazine Hcl*) 100 Mg Tablet, 100 MG PO BID, #90 TAB Prov:KENJIKODY S. 04/16/15 Clonazepam* (Clonazepam*) 1 Mg Tablet, 1 MG PO QHS Y for ANXIETY for 30 Days, TAB Prov:KENJIKODY S. 04/16/15 Reported Medications Sertraline Hcl* (Sertraline Hcl*) 50 Mg Tablet, 50 MG PO DAILY, #30 TAB 05/01/16 Calcium Acetate* (Phoslo*) 667 Mg Tablet, 667 MG PO WITH MEALS, TAB 05/01/16 Metoclopramide* (Reglan*) 5 Mg Tablet, 5 MG PO DAILY, TAB 05/01/16 Gabapentin* (Gabapentin*) 600 Mg Tablet, 600 MG PO TID, #90 TAB 05/01/16 Carvedilol* (Carvedilol*) 6.25 Mg Tablet, 6.25 MG PO BID, #60 TAB 05/01/16 Diphenhydramine Hcl* (Diphenhydramine Hcl*) 25 Mg Capsule, 25 MG PO Q6 Y for ITCHING, CAP 05/01/16 Oxycodone Hcl* (IR) (Oxycodone Hcl*) 15 Mg Tablet, 15 MG PO BID Y for PAIN, TAB 04/26/16 Discontinued Reported Medications Oxycodone Hcl-Acetaminophen* (Percocet*) 2.5-325 Mg Tablet, 1 TAB PO BID Y for SEVERE PAIN LEVEL 7-10, TAB 04/14/15 Discontinued Scripts Amlodipine Besylate* (Norvasc*) 10 Mg Tablet, 10 MG PO DAILY for 30 Days, TAB 2 Refills Prov:KENJIKODY S. 04/16/15 Lisinopril* (Lisinopril*) 40 Mg Tablet, 40 MG PO DAILY, #30 TAB Prov:KENJIKODY S. 04/16/15 Sertraline Hcl* (Sertraline Hcl*) 50 Mg Tablet, 50 MG PO DAILY, #30 TAB Prov:KODY PHILLIP S. 04/16/15 Gabapentin* (Gabapentin*) 600 Mg Tablet, 600 MG PO TID, #90 TAB Prov:KODY PHILLIP S. 04/16/15 Pending Labs Laboratory Tests Test 05/02/16 02:00 05/02/16 05:48 05/02/16 13:50 Urine Bilirubin NEGATIVE (NEGATIVE) Urine Clarity CLEAR (CLEAR) Urine Color LT. YELLOW (YELLOW) Urine Glucose 0.1%% (NEGATIVE) Urine Hemoglobin NEGATIVE (NEGATIVE) Urine Ketones NEGATIVE (NEGATIVE) Urine Leukocyte Esterase NEGATIVE (NEGATIVE) Urine Microscopic RBC NONE SEEN/HPF (0) Urine Microscopic WBC 0-2/HPF (0) Urine Nitrite NEGATIVE (NEGATIVE) Urine Specific [place] 1.010 (1.003-1.030) Urine Total Protein 2+ (NEGATIVE) Urine Urobilinogen 0.2 E.U./dL (0.1-1.0) Urine pH 7.5 (5.0-9.0) Alanine Aminotransferase (ALT/SGPT) 22IU/L (13-69) Albumin 2.8g/dl (3.3-4.9) Albumin/Globulin Ratio 0.96 Alkaline Phosphatase 66IU/L (42-121) Anion Gap 14 (8-16) 16 (8-16) Aspartate Amino Transf (AST/SGOT) 19IU/L (15-46) Blood Urea Nitrogen 37mg/dl (7-20) 37mg/dl (7-20) Calcium Level 8.1mg/dl (8.4-10.2) 8.5mg/dl (8.4-10.2) Carbon Dioxide Level 33mmol/L (21-31) 31mmol/L (21-31) Chloride Level 93mmol/L (97-110) 91mmol/L (97-110) Creatinine 8.00mg/dl (0.61-1.24) 8.53mg/dl (0.61-1.24) Direct Bilirubin 0.00mg/dl (0.00-0.20) Globulin 2.90g/dl (1.3-3.2) Glucose Level 82mg/dl (70-220) 97mg/dl (70-220) Hemoglobin A1c 4.9% (0-5.9) Hepatitis B Core Total Antibody NEGATIVE (NEGATIVE) Hepatitis B Surface Antigen NEGATIVE (NEGATIVE) Hepatitis C Antibody NEGATIVE (NEGATIVE) INR International Normalized Ratio 1.04 Indirect Bilirubin 0.0mg/dl (0-1.1) Magnesium Level 2.1mg/dl (1.7-2.5) Phosphorus Level 5.3mg/dl (2.5-4.9) Potassium Level 5.2mmol/L (3.5-5.1) 5.1mmol/L (3.5-5.1) Prothrombin Time 13.6Sec (12.2-14.2) Prothrombin Time Ratio 1.1 Sodium Level 135mmol/L (135-144) 133mmol/L (135-144) Thyroid Stimulating Hormone (TSH) 1.460MIU/L (0.465-4.680) Total Bilirubin 0.0mg/dl (0.2-1.3) Total Protein 5.7g/dl (6.1-8.1) LINDA CADE MD May 02, 2016 15:16
--- NOTE | 2016-05-02 16:27 | CONS ---
Date/Time of Note Date/Time of Note DATE: 05/02/16 TIME: 16:26 Assessment/Plan Assessment/Plan Chief Complaint/Hosp Course IMPRESSION: This is a 45-year-old male who presented with: 1. Acute hyperkalemia secondary to missed hemodialysis.better 2. End-stage renal disease on hemodialysis Monday, , Monday. 3. The patient is originally from [place]. He is set up for hemodialysis at [facility]. 4. History of hypertension. 5. History of hyperlipidemia. 6. History of decompensated liver cirrhosis with ascites, recent paracentesis 3 days ago, 3.5 liters removed. 7. Hypertensive emergency.better plan hd out pt Problems: Consultation Date/Type/Reason Admit Date/Time Apr 30, 2016 at 23:16 Initial Consult Date Type of Consultation: renal 24 HR Interval Summary Constitutional: no complaints Exam/Review of Systems Vital Signs Vitals Vital Signs Date Time Temp Pulse Resp B/P Pulse Ox O2 Delivery O2 Flow Rate FiO2 05/02/16 08:30 Room Air 05/02/16 07:36 97.9 99 18 125/82 100 Intake and Output 05/01/16 05/01/16 05/02/16 15:00 23:00 07:00 Intake Total 1520 ml 500 ml Output Total 4000 ml Balance -2480 ml 500 ml Exam Neck: supple Respiratory: clear to auscultation Cardiovascular: regular rate and rhythm Gastrointestinal: ascites (+), soft Results Result Diagram: 05/01/16 0900 05/02/16 1350 Results 24 hrs Laboratory Tests Test 05/02/16 02:00 05/02/16 05:48 05/02/16 13:50 Urine Bilirubin NEGATIVE Urine Clarity CLEAR Urine Color LT. YELLOW Urine Glucose 0.1% H Urine Hemoglobin NEGATIVE Urine Ketones NEGATIVE Urine Leukocyte Esterase NEGATIVE Urine Microscopic RBC NONE SEEN Urine Microscopic WBC 0-2 Urine Nitrite NEGATIVE Urine Specific [place] 1.010 Urine Total Protein 2+ H Urine Urobilinogen 0.2 E.U./dL Urine pH 7.5 Alanine Aminotransferase (ALT/SGPT) 22 Albumin 2.8 L Albumin/Globulin Ratio 0.96 Alkaline Phosphatase 66 Anion Gap 14 16 Aspartate Amino Transf (AST/SGOT) 19 Blood Urea Nitrogen 37 #H 37 H Calcium Level 8.1 L 8.5 Carbon Dioxide Level 33 H 31 Chloride Level 93 L 91 L Creatinine 8.00 #H 8.53 H Direct Bilirubin 0.00 Globulin 2.90 Glucose Level 82 97 Hemoglobin A1c 4.9 Hepatitis B Core Total Antibody NEGATIVE Hepatitis B Surface Antigen NEGATIVE Hepatitis C Antibody NEGATIVE INR International Normalized Ratio 1.04 Indirect Bilirubin 0.0 Magnesium Level 2.1 Phosphorus Level 5.3 H Potassium Level 5.2 H 5.1 Prothrombin Time 13.6 Prothrombin Time Ratio 1.1 Sodium Level 135 133 L Thyroid Stimulating Hormone (TSH) 1.460 Total Bilirubin 0.0 L Total Protein 5.7 #L Medications Medications Current Medications Carvedilol (Coreg) 6.25 mg BID PO Last administered on 05/02/16 08:28; Admin Dose 6.25 MG; Start 05/01/16 at 09:00 Clonazepam (Klonopin) 1 mg QHS PRN PO ANXIETY Last administered on 05/01/16 21 :30; Admin Dose 1 MG; Start 05/01/16 at 01:30 Diphenhydramine HCl (Benadryl) 25 mg Q6 PRN PO ITCHING; Start 05/01/16 at 01:30 Gabapentin (Neurontin) 600 mg TID PO Last administered on 05/02/16 12:17; Admin Dose 600 MG; Start 05/01/16 at 09:00 Hydralazine HCl (Apresoline) 100 mg BID PO Last administered on 05/02/16 08:26 ; Admin Dose 100 MG; Start 05/01/16 at 09:00 Minoxidil (Loniten) 10 mg DAILY PO Last administered on 05/02/16 08:27; Admin Dose 10 MG; Start 05/01/16 at 09:00 Nifedipine (Procardia Xl) 60 mg DAILY PO Last administered on 05/02/16 08:26; Admin Dose 60 MG; Start 05/01/16 at 09:00 Oxycodone HCl (Roxicodone) 15 mg BID PRN PO PAIN; Start 05/01/16 at 01:30 Ranitidine HCl (Zantac) 150 mg Q12 PO Last administered on 05/02/16 08:27; Admin Dose 150 MG; Start 05/01/16 at 09:00 Sertraline HCl (Zoloft) 50 mg DAILY PO Last administered on 05/02/16 08:26; Admin Dose 50 MG; Start 05/01/16 at 09:00 Hydralazine HCl (Apresoline) 10 mg Q4H PRN IV SBP >160; Start 05/01/16 at 01:30 Heparin Sodium (Porcine) (Heparin (5000 Units/0.5 ml)) 5,000 unit BID SC ; Start 05/01/16 at 09:00 Morphine Sulfate (morphine) 3 mg Q4H PRN IV pain Last administered on t 14:53; Admin Dose 3 MG; Start 05/01/16 at 01:30 Metoclopramide HCl (Reglan) 10 mg Q6H PRN IV nausea and vomiting ; Start at 01:30 Zolpidem Tartrate (Ambien) 10 mg HS PRN PO INSOMNIA; Start 05/01/16 at 23:30 TERE REIS MD May 02, 2016 16:27
--- NOTE | 2016-05-02 22:43 | RADRPT ---
Vent Rate: 110 bpm RR Interval: 0 msec MI Interval: 192 msec QRS Duration: 70 msec QT Interval: 338 msec QTC Interval: 457 msec P-R-T Mcbh [place]: 49 - 49 - 81 degrees Sinus tachycardia Possible Left atrial enlargement Nonspecific ST and T wave abnormality Abnormal ECG Electronically Signed By: Arnol Harrison [id number]
== END 2016-05-02 17:40 | disposition home or self-care (01) ==
LOC: E/R 19:58 → MS2 23:16
PROVIDERS: ADMIT Internal Medicine; ATTEND Internal Medicine
DX: I12.0 Hypertensive chronic kidney disease with stage 5 chronic kidney disease or end stage renal disease (principal); N18.6 End stage renal disease; Z99.2 Dependence on renal dialysis; R18.8 Other ascites; K74.60 Unspecified cirrhosis of liver; E78.5 Hyperlipidemia, unspecified
CPT/HCPCS: 49083; 71010; 80048; 80053; 81001; 81003; 83036; 83690; 83735; 84100; 84443; 85025; 85610; 85730; 86704; 86709; 86803; 87081; 87340; 90935; 93005; 96374; J2270; J2405; Z7500; Z7502; Z7610; G0378

== ENCOUNTER 2016-05-05 20:14 | Inpatient (IN) | payer OTHER ==
[~2016-05-05] VITALS: Ht 172.7 cm; Wt 83.6 kg
[~2016-05-05 20:14] MED LIST changes: -AMLO-218 PO; +CALC667T2 PO; +CARV6.2579 PO; +DIPH25CA6 PO; +GABA-526 PO; -LISI40TA9 PO; +METO5TAB58 PO; +SERT50TA6 PO
[2016-05-05 22:32] LABS: ALBUMIN 3.4 g/dl (3.3-4.9)
[2016-05-05 22:35] LABS: CREATININE 11.73 mg/dl (0.61-1.24)
[2016-05-05 22:36] LABS: CALCIUM 8.3 mg/dl (8.4-10.2); TOTAL PROTEIN 6.5 g/dl (6.1-8.1)
[2016-05-05 22:38] LABS: HEMATOCRIT 27.5 % (42.0-52.0); MEAN CORPUSCULAR HEMOGLOBIN 21.5 pg (29.0-33.0); MEAN CORPUSCULAR HGB CONC 32.6 g/dl (32.0-37.0); MEAN CORPUSCULAR VOLUME 65.9 fl (82.0-101.0); MEAN PLATELET VOLUME 7.9 fl (7.4-10.4); PLATELET COUNT 265 10^3/UL (140-440); RED BLOOD COUNT 4.17 10^6/ul (4.70-6.10); UNCORRECTED WBC 8.5 10^3/ul (4.8-10.8); WHITE BLOOD COUNT 8.5 10^3/ul (4.8-10.8)
[2016-05-05 22:41] LABS: ALBUMIN/GLOBULIN RATIO 1.09; POTASSIUM 6.2 mmol/L (3.5-5.1)
[2016-05-05 22:45] LABS: CONDITION 1; LH ANALYZER COMMENTS 1
[2016-05-05] MEDS ORDERED: NA POLYST SULFON 15 GM/60 ML BTL PO ONE (23:01)
[2016-05-05] MEDS ORDERED: DEXTROSE 50% 50 ML SYRINGE IV ONE (23:01)
[2016-05-05] MEDS ORDERED: INSULIN REGULAR, HUMAN 100 UNIT/1 ML 3ML VIAL IV ONE (23:01)
[2016-05-05] MEDS ORDERED: NA BICARBONATE 8.4% 50 ML SYG IV ONE (23:01)
[2016-05-05] MEDS ORDERED: CA GLUCONATE (GM) 10% 10ML INJ IV ONE (23:01)
--- NOTE | 2016-05-05 23:23 | ERA ---
ER Documentation Chief Complaint Date/Time DATE: 05/05/16 TIME: 23:19 Chief Complaint diffuse abd pain back pain, both leg swelling, dialysis pt HPI This is a 45-year-old male who presents to the emergency room for evaluation of leg swelling, and generalized weakness. The patient does state that he has end- stage renal disease and is supposed to go to dialysis Monday, Monday, and Monday but he has not been going to dialysis because "it is too early in the morning". This patient has been admitted multiple times this month for similar complaints for hyperkalemia ROS All systems reviewed and are negative except as per history of present illness. Medications Home Meds Active Scripts Ondansetron Hcl* (Zofran*) 4 Mg Tablet, 4 MG PO Q8 for 30 Days, TAB 2 Refills Prov:KODY PHILLIP S. 04/16/15 Metoclopramide* (Reglan*) 10 Mg Tablet, 10 MG PO DAILY for 30 Days, TAB Prov:KODY PHILLIP S. 04/16/15 Ranitidine Hcl* (Ranitidine Hcl*) 150 Mg Tablet, 150 MG PO Q12 for 30 Days, TAB 2 Refills Prov:KODY PHILLIP S. 04/16/15 Minoxidil* (Lonitin*) 10 Mg Tab, 10 MG PO DAILY for 30 Days, TAB 2 Refills Prov:KODY PHILLIP S. 04/16/15 Nifedipine* (Nifedical XL*) 60 Mg/Bottle Tab.osm.24, 60 MG PO DAILY for 30 Days , TAB 2 Refills Prov:KODY PHILLIP S. 04/16/15 Hydralazine Hcl* (Hydralazine Hcl*) 100 Mg Tablet, 100 MG PO BID, #90 TAB Prov:KODY PHILLIP S. 04/16/15 Clonazepam* (Clonazepam*) 1 Mg Tablet, 1 MG PO QHS Y for ANXIETY for 30 Days, TAB Prov:KODY PHILLIP S. 04/16/15 Reported Medications Sertraline Hcl* (Sertraline Hcl*) 50 Mg Tablet, 50 MG PO DAILY, #30 TAB 05/01/16 Calcium Acetate* (Phoslo*) 667 Mg Tablet, 667 MG PO WITH MEALS, TAB 05/01/16 Metoclopramide* (Reglan*) 5 Mg Tablet, 5 MG PO DAILY, TAB 05/01/16 Gabapentin* (Gabapentin*) 600 Mg Tablet, 600 MG PO TID, #90 TAB 05/01/16 Carvedilol* (Carvedilol*) 6.25 Mg Tablet, 6.25 MG PO BID, #60 TAB 05/01/16 Diphenhydramine Hcl* (Diphenhydramine Hcl*) 25 Mg Capsule, 25 MG PO Q6 Y for ITCHING, CAP 05/01/16 Oxycodone Hcl* (IR) (Oxycodone Hcl*) 15 Mg Tablet, 15 MG PO BID Y for PAIN, TAB 04/26/16 Discontinued Scripts Amlodipine Besylate* (Norvasc*) 10 Mg Tablet, 10 MG PO DAILY for 30 Days, TAB 2 Refills Prov:KODY PHILLIP S. 04/16/15 Lisinopril* (Lisinopril*) 40 Mg Tablet, 40 MG PO DAILY, #30 TAB Prov:KODY PHILLIP S. 04/16/15 Allergies Allergies: Coded Allergies: No Known Allergy (Unverified , 05/05/16) PMhx/Soc History of Surgery: Yes (cholecystectomy, left forearm fistula placement) Anesthesia Reaction: No Hx Neurological Disorder: Yes (migraines ) Hx Respiratory Disorders: No Hx Cardiac Disorders: Yes (heart murmur, HTN, abnormal heart rhythm ) Hx Psychiatric Problems: Yes (depression ) Hx Miscellaneous Medical Probl: Yes (paracenthesis, LIVER CIRRHOSIS) Hx Alcohol Use: No Hx Substance Use: Yes (MARIJUANA) Hx Tobacco Use: Yes ( ) Smoking Status: Former smoker Physical Exam Vitals Vital Signs Date Time Temp Pulse Resp B/P Pulse Ox O2 Delivery O2 Flow Rate FiO2 05/05/16 21:50 100.1 104 20 137/94 98 Room Air 05/05/16 20:51 100.1 108 20 186/94 100 Physical Exam INITIAL VITAL SIGNS: Reviewed by me GENERAL: The patient is well developed and appropriate for usual state of health in no apparent distress HEENT: Pupils equal, round, and reactive to light. EOMI. There is no scleral icterus. NECK: C-spine is soft and supple, there is no meningismus. There is no cervical lymphadenopathy. LUNGS: Clear to auscultation bilaterally. There are no rales, wheezes or rhonchi. HEART: Regular rate and rhythm, no murmurs, clicks, rubs or gallops. ABDOMEN: Soft, non-tender, non-distended. There are bowel sounds in all four quadrants. No rebound or guarding. EXTREMITIES: 2+ pitting edema in the bilateral lower extremities NEUROLOGICAL: The patient moves all four extremities with 5/5 strength. Cranial nerves II - XII are intact. Normal gait. Alert and oriented SKIN: There is no apparent rash or petechiae. HEME/LYMPHATIC: There is no evidence of excessive bruising or lymphedema. PSYCHIATRIC: The patient does not appear anxious or depressed. Result Diagram: 05/05/16220905/05/162209 Results 24 hrs Laboratory Tests Test 05/05/16 22:10 Alanine Aminotransferase (ALT/SGPT) 31IU/L Albumin 3.4g/dl Albumin/Globulin Ratio 1.09 Alkaline Phosphatase 81IU/L Anion Gap 21 Aspartate Amino Transf (AST/SGOT) 22IU/L Blood Morphology Comment Blood Urea Nitrogen 70mg/dl Calcium Level 8.3mg/dl Carbon Dioxide Level 28mmol/L Chloride Level 95mmol/L Creatinine 11.73mg/dl Direct Bilirubin 0.00mg/dl Globulin 3.10g/dl Glucose Level 90mg/dl Hematocrit 27.5% Hemoglobin 9.0g/dl Indirect Bilirubin 0.0mg/dl Lipase 67U/L Mean Corpuscular Hemoglobin 21.5pg Mean Corpuscular Hemoglobin Concent 32.6g/dl Mean Corpuscular Volume 65.9fl Mean Platelet Volume 7.9fl Platelet Count 82779^3/UL Potassium Level 6.2mmol/L Red Blood Count 4.1710^6/ul Red Cell Distribution Width 24.0% Sodium Level 138mmol/L Total Bilirubin 0.0mg/dl Total Protein 6.5g/dl White Blood Count 8.510^3/ul Current Medications Medications (Trade) Dose Ordered Sig/Alejandrina Route PRN Reason Start Time Stop Time Status Last Admin Dose Admin Insulin Human Regular (Humulin R) 10 unit ONCE ONCE IV 05/05/16 23:01 05/05/16 23:02 DC Dextrose (D50w Syringe) 50 ml ONCE ONCE IV 05/05/16 23:01 05/05/16 23:02 DC Sodium Polystyrene Sulfonate (Kayexalate) 30 gm ONCE ONCE PO 05/05/16 23:01 05/05/16 23:02 DC Sodium Bicarbonate (Na Bicarb 8.4% Syg) 50 ml ONCE ONCE IV 05/05/16 23:01 05/05/16 23:02 DC Calcium Gluconate (Ca Gluc) 1 gm ONCE ONCE IV 05/05/16 23:01 05/05/16 23:02 DC Ondansetron HCl (Zofran Inj) 4 mg ER BRIDGE PRN IV NAUSEA AND/OR VOMITING 05/05/16 23:30 05/06/16 23:29 Acetaminophen (Tylenol Tab) 650 mg ER BRIDGE PRN PO MILD PAIN/FEVER 05/05/16 23:30 05/06/16 23:29 Procedures/MDM EKG: Rate/Rhythm: Sinus tachycardia QRS, ST, T-waves: [No changes consistent w/ acute ischemia] Impression: [No evidence of ischemia or arrhythmia] Chest X-ray 1V Interpreted by me: Soft Tissue: No acute abnormalities Bones: No acute abnormalities Mediastinum/Cardiac Silhouette/Lungs: [No acute abnormalities] This 45-year-old male presents to the emergency room for evaluation of generalized weakness, and leg swelling. When I evaluated him he did have a peripheral edema. The patient is on dialysis and is noncompliant because it is "too early in the morning". This patient was found to have a potassium of 6.2. He was given Kayexalate, calcium gluconate, insulin, dextrose. He will be placed in for admission at this time on a telemetry floor under a panel physician, Dr. An. No EKG changes at this time Critical Care: Time: 32 minutes Treatments/Evaluations: Close monitoring and treatment of unstable vital signs, cardiorespiratory, and neurologic status, while maintaining tight balance of fluid, respiratory, and cardiac interventions. Departure Diagnosis: Primary Impression: Hyperkalemia Additional Impressions: Microcytic anemia Fluid overload End stage renal disease Condition: Stable VERNON BAEZ DO May 05, 2016 23:23
[2016-05-05] MEDS ORDERED: ONDANSETRON 4 MG INJ IV PRN (23:30)
[2016-05-05] MEDS ORDERED: ACETAMINOPHEN 325 MG TAB PO PRN (23:30)
[2016-05-06] VITALS (21 sets, daily range): BP systolic 88–153; BP diastolic 46–96; PULSE 84–120; RESP 18–21; TEMP 100.1; Ht 172.7 cm; Wt 83.6 kg
[2016-05-06 00:27] LABS: EOSINOPHILS # 0.1 10^3/ul (0.0-0.5); LYMPHOCYTES # 1.4 10^3/ul (0.8-2.9); MONOCYTE # 0.4 10^3/ul (0.3-0.9); NEUTROPHIL # 6.6 10^3/ul (1.6-7.5); PLATELET ESTIMATE PLT APPEAR ADEQUATE; TARGET CELLS MODERATE
--- NOTE | 2016-05-06 00:29 | RADRPT ---
PROCEDURE: XR Chest. CLINICAL INDICATION: Fluid overload and dyspnea TECHNIQUE: AP Portable chest. COMPARISON: 04/30/2016 chest x-ray FINDINGS: The soft tissues and bones are normal. Discoid atelectasis versus early infiltrate in the left midlu ng is present.. The mediastinum and heart are remarkable for mild cardiomegaly and normal mediastin um. No pleural effusions or pneumothorax is present. IMPRESSION: 1. Discoid atelectasis or early infiltrate in the left mid lung. 2. Mild cardiomegaly RPTAT: HDC .Raya Ramos MD, Date Time Electronically viewed and signed by .Raya Ramos MD, on 05/06/2016 00:28 .C/
[2016-05-06] MEDS ORDERED: oxyCODONE 15 MG TAB PO PRN (01:30)
[2016-05-06] MEDS ORDERED: ONDANSETRON 4 MG INJ IV PRN (01:30)
[2016-05-06] MEDS ORDERED: traMADol 50 MG TAB PO PRN (01:30)
[2016-05-06] MEDS ORDERED: DIPHENHYDRAMINE 25 MG CAP PO PRN (01:30)
[2016-05-06] MEDS: clonAZEPAM 0.5 MG TAB PO PRN ×2 (02:09→21:47)
[2016-05-06] MEDS ORDERED: ACETAMINOPHEN 1000MG/100ML IV 100 ML IVPB SCH (04:00)
[2016-05-06] MEDS: ONDANSETRON 4 MG TAB PO SCH ×3 (05:59→22:48)
[2016-05-06 06:58] LABS: POTASSIUM 5.9 mmol/L (3.5-5.1)
--- NOTE | 2016-05-06 07:00 | HP ---
Date/Time of Note Date/Time of Note DATE: 05/06/16 TIME: 06:54 Assessment/Plan VTE Prophylaxis VTE Prophylaxis Intervention: heparin Lines/Catheters IV [facility] (from [facility] Saline Lock Urinary Cath still in place: No Assessment/Plan Assessment/Plan IMPRESSION 1. Hyperkalemia, 2/2 missing dialysis 2. ESRD on HD 3. Decompensated Liver Cirrhosis with ascites: had paracentesis 3 days ago here with removal of 3.5L 4. Low grade fever PLAN - Nephrology consult for dialysis - Cont home anti-hypertensive meds and add/adjust dose for better BP control - Repeat paracentesis as needed based on clinical course, last one a week ago with removal of 3.5L - Since pt still makes urine, his home meds should include lasix and if he is to get dialysis regularly(so as not to run into problem with hyperkalemia), Aldactone should be added as well. This way, he may not need paracentesis [id number] HPI/ROS Admit Date/Time Admit Date/Time May 05, 2016 at 23:17 Hx of Present Illness Patient is a 45 yo male with hx of HTN, ESRD on HD, Cirrhosis and neuropathy who presented to ER complaining of abd distention and bilateral lower ext swelling. pt was just admitted twice in one week for same issue and was dialyzed and had paracentesis. Pt had left AMA the first time. During his recent hospitalization, he said his last HD was a week ago and that he gets paracentesis every 2 weeks. He came from [place] recently and said would stay for 2 weeks here before going back. He was admitted here last year for similar presentation after coming from [place] and missing dialysis. When pt came to ER today, his K+ was 6.2 and was given kayexalate, insulin, bicarb and calcium gluconate. . PMH/Family/Social Past Medical History Medical History: high cholesterol, hypertension, renal disease, other ( cirrhosis) Past Surgical History Past Surgical Hx: other (AV fistula) Social History Alcohol Use: occasionally Smoking Status: Current every day smoker Drug Use: marijuana Exam/Review of Systems Vital Signs Vitals Vital Signs Date Time Temp Pulse Resp B/P Pulse Ox O2 Delivery O2 Flow Rate FiO2 05/06/16 04:21 115 05/06/16 03:41 98.2 18 150/96 98 05/06/16 02:26 Room Air Intake and Output 05/05/16 05/05/16 05/06/16 15:00 23:00 07:00 Intake Total 1200 ml Balance 1200 ml Exam Exam Constitutional: alert, oriented, well developed Head: atraumatic, normocephalic Eyes: EOMI, PERRL Respiratory: clear to auscultation, normal air movement Cardiovascular: other (tachycardic with regular rhythm) Gastrointestinal: distended, tender Extremities: edema Labs Result Diagram: 05/05/160 05/05/16 2210 Medications Medications Current Medications Carvedilol (Coreg) 6.25 mg BID PO Last administered on 05/06/16 02:08; Admin Dose 6.25 MG; Start 05/06/16 at 01:30 Clonazepam (Klonopin) 1 mg QHS PRN PO ANXIETY Last administered on 05/06/16 02 :09; Admin Dose 1 MG; Start 05/06/16 at 01:30 Diphenhydramine HCl (Benadryl) 25 mg Q6 PRN PO ITCHING; Start 05/06/16 at 01:30 Gabapentin (Neurontin) 600 mg TID PO ; Start 05/06/16 at 09:00 Hydralazine HCl (Apresoline) 100 mg BID PO Last administered on 05/06/16 02:08 ; Admin Dose 100 MG; Start 05/06/16 at 01:30 Metoclopramide HCl (Reglan) 5 mg DAILY PO ; Start 05/06/16 at 09:00; Status UNV Metoclopramide HCl (Reglan) 10 mg DAILY PO ; Start 05/06/16 at 09:00; Status UNV Minoxidil (Loniten) 10 mg DAILY PO ; Start 05/06/16 at 09:00 Nifedipine (Procardia Xl) 60 mg DAILY PO ; Start 05/06/16 at 09:00 Ondansetron HCl (Zofran Tab) 4 mg Q8 PO Last administered on 05/06/16 05:59; Admin Dose 4 MG; Start 05/06/16 at 06:00 Oxycodone HCl (Roxicodone) 15 mg BID PRN PO PAIN; Start 05/06/16 at 01:30 Ranitidine HCl (Zantac) 150 mg DAILY PO ; Start 05/06/16 at 09:00 Sertraline HCl (Zoloft) 50 mg DAILY PO ; Start 05/06/16 at 09:00 Ondansetron HCl (Zofran Inj) 4 mg Q6H PRN IV NAUSEA AND/OR VOMITING; Start at 01:30 Heparin Sodium (Porcine) (Heparin (5000 Units/0.5 ml)) 5,000 unit BID SC ; Start 05/06/16 at 09:00 Tramadol HCl (Ultram) 50 mg Q6H PRN PO PAIN Last administered on 05/06/16 02: 09; Admin Dose 50 MG; Start 05/06/16 at 01:30 Clonidine 0.1 mg 0.1 mg Q4H PRN PO ELEVATED SYSTOLIC BP; Start 05/06/16 at 01: 30 Acetaminophen (Ofirmev 1000mg/ 100ml Iv) 100 ml @ 400 mls/hr Q8H IVPB Last administered on 05/06/16 04:09; Admin Dose 400 MLS/HR; Start 05/06/16 at 04:00 JARRED ABRAHAM MD May 06, 2016 07:00
[2016-05-06 07:01] LABS: CREATININE 11.74 mg/dl (0.61-1.24)
[2016-05-06 07:02] LABS: CALCIUM 8.6 mg/dl (8.4-10.2)
[2016-05-06 07:05] LABS: HEMATOCRIT 26.3 % (42.0-52.0); HEMOGLOBIN 8.6 g/dl (14.0-18.0); MEAN CORPUSCULAR HEMOGLOBIN 21.7 pg (29.0-33.0); MEAN CORPUSCULAR HGB CONC 32.7 g/dl (32.0-37.0); MEAN CORPUSCULAR VOLUME 66.4 fl (82.0-101.0); PLATELET COUNT 244 10^3/UL (140-440); RED BLOOD COUNT 3.97 10^6/ul (4.70-6.10); RED CELL DISTRIBUTION WIDTH 23.7 % (11.5-14.5)
[2016-05-06 07:31] LABS: CONDITION 1; LH ANALYZER COMMENTS 1
[2016-05-06] MEDS: GABAPENTIN 300 MG CAP PO SCH ×3 (08:19→21:47)
[2016-05-06] MEDS: NIFEdipine (XL) 60 MG TAB PO SCH (08:20)
[2016-05-06] MEDS: MINOXIDIL 10 MG TAB PO SCH (08:20)
[2016-05-06] MEDS: SERTRALINE 50 MG TAB PO SCH (08:20)
[2016-05-06] MEDS: RANITIDINE 150 MG TAB PO SCH (08:20)
[2016-05-06] MEDS: CALCIUM ACETATE 667 MG CAP PO SCH ×3 (08:20→18:03)
[2016-05-06] MEDS: HEPARIN 5,000 UNIT/0.5 ML SYG SC SCH ×2 (08:31→22:48)
[2016-05-06] MEDS ORDERED: METOCLOPRAMIDE 10 MG TAB PO SCH (09:00)
[2016-05-06] MEDS ORDERED: [UNRECOGNIZED DRUG - REMARK] XX SCH (10:00)
[2016-05-06] MEDS ORDERED: NA POLYST SULFON 15 GM/60 ML BTL PO ONE (10:00)
[2016-05-06 11:57] LABS: LYMPHOCYTES # 1.4 10^3/ul (0.8-2.9); MONOCYTE # 1.3 10^3/ul (0.3-0.9); NEUTROPHIL # 5.8 10^3/ul (1.6-7.5)
[2016-05-06] MEDS: HYDROCODONE/APAP (7.5/325) TAB PO PRN ×2 (11:57→21:48)
[2016-05-06] MEDS: METOCLOPRAMIDE 5 MG TAB PO SCH (11:58)
--- NOTE | 2016-05-06 16:04 | QN ---
Documentation Comment [id number] consult TERE REIS MD May 06, 2016 16:04
--- NOTE | 2016-05-06 17:20 | CONS ---
DATE OF ADMISSION: 05/05/2016 DATE OF CONSULTATION: TYPE OF CONSULTATION: Nephrology. Thank you, Dr. Ridley, for kindly asking me to see this patient in nephrology consultation. HISTORY OF PRESENT ILLNESS: Mr. Gamaliel Knapp is a 45-year-old male with ESRD who has multiple hospit alizations to this hospital recently discharged with diagnosis of hyperkalemia, ascites, paracentesi s, and presented back again with fluid overload, missing dialysis, and the patient has hyperkalemia. The patient denies any nausea or vomiting at this point. PAST MEDICAL HISTORY: Positive for ESRD, hypertension, cirrhosis of the liver, ascites, AV fistula of the upper extremity, status post paracentesis. ALLERGY HISTORY: NEGATIVE. FAMILY HISTORY: He denies. SOCIAL HISTORY: Negative at this point. MEDICATION HISTORY: The patient's home medications 1. PhosLo. 2. Coreg. 3. Clonazepam. 4. Benadryl. 5. Gabapentin. 6. Hydralazine. 7. Reglan. 8. Minoxidil. 9. Nifedipine. 10. Zofran. 11. Oxycodone. 12. Ranitidine. 13. Zoloft. REVIEW OF SYSTEMS: HEENT: Unremarkable. RESPIRATORY: Mildly short of breath. CARDIOVASCULAR: No complaint of palpitations. ABDOMEN: Dyspepsia, ascites, abdominal size increased. EXTREMITIES: Complaining of swelling. CENTRAL NERVOUS SYSTEM: Unremarkable. PHYSICAL EXAMINATION: GENERAL: The patient is awake and alert. VITAL SIGNS: Pulse 80, blood pressure 103/57. HEAD: Atraumatic, normocephalic. Pupils equal, reactive to light. No pale conjunctivae or icterus . NECK: Supple, no JVD. LUNGS: Clear anteriorly, but the patient has basilar rales. CARDIOVASCULAR: S1, S2 normal. ABDOMEN: Soft. Bowel sounds positive. Distended, ascites appreciated. EXTREMITIES: There is no cyanosis, clubbing. Edema positive. LABORATORY DATA: Hematocrit 26.3. Potassium 5.9, sodium 138. Chest x-ray shows discoid atelectasi s or early infiltrate in the left mid lung zone. IMPRESSION: 1. End-stage renal disease. 2. Hyperkalemia and ascites. 3. Cirrhosis of the liver. 4. The patient has anemia, status post paracentesis. PLAN: To continue renal diet. The patient will be undergoing hemodialysis today and tomorrow. Patricia lysis nurse has been notified. The patient should continue binders and blood pressure medication at this point and Nephro-Zion and Folic acid. Thank you, Dr. Ridley, for kindly asking me to see this patient in nephrology consultation. Dictated By: TERE REIS MD BS/NTS Conf#: [id number] DID#: [id number]
[2016-05-07] VITALS (17 sets, daily range): BP systolic 96–135; BP diastolic 57–73; PULSE 103–122; RESP 18–20
[2016-05-07] MEDS ORDERED: FAMOTIDINE 20 MG TAB PO SCH (02:30)
[2016-05-07] MEDS ORDERED: AL HYDROX/MG HYDROX/SIMETH 30 ML CUP PO ONE (02:30)
[2016-05-07] MEDS: HYDROCODONE/APAP (7.5/325) TAB PO PRN ×2 (04:37→16:44)
[2016-05-07] MEDS: ONDANSETRON 4 MG TAB PO SCH ×2 (05:45→13:20)
[2016-05-07] MEDS: CALCIUM ACETATE 667 MG CAP PO SCH ×3 (07:55→17:59)
[2016-05-07 08:03] LABS: POTASSIUM 5.1 mmol/L (3.5-5.1)
[2016-05-07 08:06] LABS: CREATININE 8.73 mg/dl (0.61-1.24); HEMATOCRIT 27.2 % (42.0-52.0); MEAN CORPUSCULAR HEMOGLOBIN 21.7 pg (29.0-33.0); MEAN CORPUSCULAR HGB CONC 33.1 g/dl (32.0-37.0); MEAN CORPUSCULAR VOLUME 65.7 fl (82.0-101.0); MEAN PLATELET VOLUME 8.2 fl (7.4-10.4); PLATELET COUNT 238 10^3/UL (140-440); RED BLOOD COUNT 4.14 10^6/ul (4.70-6.10); RED CELL DISTRIBUTION WIDTH 24.1 % (11.5-14.5); UNCORRECTED WBC 6.5 10^3/ul (4.8-10.8); WHITE BLOOD COUNT 6.5 10^3/ul (4.8-10.8)
[2016-05-07 08:07] LABS: CALCIUM 8.4 mg/dl (8.4-10.2); PHOSPHORUS 6.1 mg/dl (2.5-4.9)
[2016-05-07 08:16] LABS: CONDITION 1; LH ANALYZER COMMENTS 1
[2016-05-07] MEDS: MINOXIDIL 10 MG TAB PO SCH (08:56)
[2016-05-07] MEDS: SERTRALINE 50 MG TAB PO SCH (09:00)
[2016-05-07] MEDS: GABAPENTIN 300 MG CAP PO SCH ×2 (09:00→12:11)
[2016-05-07] MEDS: METOCLOPRAMIDE 5 MG TAB PO SCH (09:00)
[2016-05-07] MEDS: NIFEdipine (XL) 60 MG TAB PO SCH (09:00)
[2016-05-07] MEDS: RANITIDINE 150 MG TAB PO SCH (09:01)
[2016-05-07] MEDS: HEPARIN 5,000 UNIT/0.5 ML SYG SC SCH (09:09)
--- NOTE | 2016-05-07 09:40 | PN ---
Date/Time of Note Date/Time of Note DATE: 05/07/16 TIME: 09:39 Assessment/Plan VTE Prophylaxis VTE Prophylaxis Intervention: other Lines/Catheters IV C[facility] Type (from [facility] Saline Lock Urinary Cath still in place: No Assessment/Plan Chief Complaint/Hosp Course IMPRESSION: 1. End-stage renal disease. 2. Hyperkalemia and ascites. 3. Cirrhosis of the liver. 4. The patient has anemia, status post paracentesis plan hd Problems: Subjective 24 Hr Interval Summary ENT: no complaints Respiratory: no complaints Exam/Review of Systems Vital Signs Vitals Vital Signs Date Time Temp Pulse Resp B/P Pulse Ox O2 Delivery O2 Flow Rate FiO2 05/07/16 08:48 103 05/07/16 07:48 98.3 18 130/68 98 05/06/16 02:26 Room Air Intake and Output 05/06/16 05/06/16 05/07/16 15:00 23:00 07:00 Intake Total 1700 ml 800 ml Output Total 3800 ml Balance -2100 ml 800 ml Exam Neck: supple Respiratory: clear to auscultation Cardiovascular: regular rate and rhythm Gastrointestinal: soft Musculoskeletal: nl extremities to inspection Results Result Diagram: 05/07/16 0650 05/07/16 0650 Results 24 hrs Laboratory Tests Test 05/07/16 06:50 Anion Gap 18 H Blood Morphology Comment Blood Urea Nitrogen 44 #H Calcium Level 8.4 Carbon Dioxide Level 29 Chloride Level 93 L Creatinine 8.73 #H Glucose Level 86 Hematocrit 27.2 L Hemoglobin 9.0 L Magnesium Level 2.0 Mean Corpuscular Hemoglobin 21.7 L Mean Corpuscular Hemoglobin Concent 33.1 Mean Corpuscular Volume 65.7 L Mean Platelet Volume 8.2 Phosphorus Level 6.1 H Platelet Count 238 Potassium Level 5.1 Red Blood Count 4.14 L Red Cell Distribution Width 24.1 H Sodium Level 135 White Blood Count 6.5 # Medications Medications Current Medications Carvedilol (Coreg) 6.25 mg BID PO Last administered on 05/06/16 21:51; Admin Dose 6.25 MG; Start 05/06/16 at 01:30 Clonazepam (Klonopin) 1 mg QHS PRN PO ANXIETY Last administered on 05/06/16 21 :47; Admin Dose 1 MG; Start 05/06/16 at 01:30 Diphenhydramine HCl (Benadryl) 25 mg Q6 PRN PO ITCHING; Start 05/06/16 at 01:30 Gabapentin (Neurontin) 600 mg TID PO Last administered on 05/07/16 09:00; Admin Dose 600 MG; Start 05/06/16 at 09:00 Hydralazine HCl (Apresoline) 100 mg BID PO Last administered on 05/06/16 21:48 ; Admin Dose 100 MG; Start 05/06/16 at 01:30 Metoclopramide HCl (Reglan) 5 mg DAILY PO Last administered on 05/07/16 09:00 ; Admin Dose 5 MG; Start 05/06/16 at 10:00 Minoxidil (Loniten) 10 mg DAILY PO Last administered on 05/06/16 08:20; Admin Dose 10 MG; Start 05/06/16 at 09:00 Nifedipine (Procardia Xl) 60 mg DAILY PO Last administered on 05/06/16 08:20; Admin Dose 60 MG; Start 05/06/16 at 09:00 Ondansetron HCl (Zofran Tab) 4 mg Q8 PO Last administered on 05/07/16 05:45; Admin Dose 4 MG; Start 05/06/16 at 06:00 Oxycodone HCl (Roxicodone) 15 mg BID PRN PO PAIN Last administered on 14:02; Admin Dose 15 MG; Start 05/06/16 at 01:30 Ranitidine HCl (Zantac) 150 mg DAILY PO Last administered on 05/07/16 09:01; Admin Dose 150 MG; Start 05/06/16 at 09:00 Sertraline HCl (Zoloft) 50 mg DAILY PO Last administered on 05/07/16 09:00; Admin Dose 50 MG; Start 05/06/16 at 09:00 Ondansetron HCl (Zofran Inj) 4 mg Q6H PRN IV NAUSEA AND/OR VOMITING; Start at 01:30 Heparin Sodium (Porcine) (Heparin (5000 Units/0.5 ml)) 5,000 unit BID SC Last administered on 05/07/16 09:09; Admin Dose 5,000 UNIT; Start 05/06/16 at 09:00 Tramadol HCl (Ultram) 50 mg Q6H PRN PO PAIN Last administered on 05/06/16 02: 09; Admin Dose 50 MG; Start 05/06/16 at 01:30 Clonidine (Catapres) 0.1 mg Q4H PRN PO ELEVATED SYSTOLIC BP; Start 05/06/16 at 01:30 Acetaminophen/ Hydrocodone Bitart ([place] (7.5-325)) 1 tab Q4H PRN PO PAIN Last administered on 05/07/16 04:37; Admin Dose 1 TAB; Start 05/06/16 at 12:00 TERE REIS MD May 07, 2016 09:40
[2016-05-07 10:20] LABS: BASOPHIL # 0.1 10^3/ul (0.0-0.1); EOSINOPHILS # 0.2 10^3/ul (0.0-0.5); LYMPHOCYTES # 1.6 10^3/ul (0.8-2.9); MONOCYTE # 0.8 10^3/ul (0.3-0.9); NEUTROPHIL # 3.8 10^3/ul (1.6-7.5)
[2016-05-07 10:21] LABS: ANISOCYTOSIS 2+; HYPOCHROMASIA 3+; MICROCYTOSIS 3+; POIKILOCYTOSIS 3+
[2016-05-07 10:23] LABS: TARGET CELLS MODERATE
--- NOTE | 2016-05-07 11:07 | PDOCDIS ---
Discharge Instructions CONDITION Patient Condition: Good HOME CARE INSTRUCTIONS: Diet Instructions: Reduced SodiumSpecial Diet: renal diet ACTIVITY: Activity Restrictions: Slowly Increase Activity Rest between Activity FOLLOW UP/APPOINTMENTS Appointments Follow up with schedule hemodialysis as outpatient Follow up with nephrology as outpatient DARVIN FRANKLIN MD May 07, 2016 11:07
--- NOTE | 2016-05-08 11:03 | DS ---
DATE OF ADMISSION: 05/05/2016 DATE OF DISCHARGE: 05/07/2016 CONSULTANTS: Nursing Staffing Coordinator, Dr. Martínez Gil DISCHARGE DIAGNOSES: 1. End-stage renal disease on hemodialysis. 2. Hyperkalemia, likely secondary to missing dialysis, resolved. 3. Decompensated liver cirrhosis with ascites, had paracentesis, removal of 3.5 liter. 4. Essential hypertension, well controlled on medical management. 5. Gastroesophageal reflux disease. Continue ranitidine. 6. Major depression. Continue Sertraline. 7. Neuropathy. Continue gabapentin. MEDICATIONS: 1. PhosLo 667 mg. 2. Coreg 6.25 mg. 3. Clonazepam 1 mg. 4. Dexilant 125 mg. 5. Gabapentin 600 mg. 6. Hydralazine 100 mg. 7. Reglan 10 mg. 8. Minoxidil 10 mg 9. Nifedipine 60 mg. 10. Zofran 4 mg. 11. Oxycodone 15 mg. 12. Ranitidine 150 mg. 13. Sertraline 50 mg. ALLERGIES: NO KNOWN DRUG ALLERGIES. PROCEDURES: Hemodialysis x2. HOSPITAL COURSE: This is a 45-year-old gentleman with past medical history of hypertension, end-sta ge renal disease on hemodialysis, cirrhosis, neuropathy, noncompliance with some of his medication a nd dialysis who presented to the ER complaining of having abdominal distention with bilateral lower extremity swelling. The patient was admitted twice about a week ago for the same issues and was haley lyzed and had paracentesis. The patient apparently left AMA the first time during the recent hospit alization. The patient had his last hemodialysis about a week ago and is stating that he is not abl e to follow with his dialysis secondary to the time of his dialysis. Upon arrival to emergency room , the patient was found to have potassium of 6.2, BUN of 70, creatinine 11.73. Hemoglobin 9.3, shalonda tocrit 27.5. Nephrology was consulted. The patient was placed on urgent hemodialysis and was rose mary nued on his home medication. I had a lengthy talk with him regarding the importance of compliance w ith the medication. The patient has been able to tolerate his oral intake. His blood pressure has been stable, ranging between 130/68 to 120/64. His heart rate is 103, temperature 98.3, respiration rate 18, oxygen saturation 98%. The patient has been continued on aggressive medical management an d is planned for another hemodialysis today prior to discharge. He has been cleared from a nephrolo gy standpoint to be discharged home today. I had a lengthy talk with him regarding being compliant with his medication and hemodialysis and in case he cannot make it to hemodialysis time, he needs to follow with nephrology for a change of the appointment. CONDITION AT TIME OF DISCHARGE: Stable. Dictated By: DARVIN MINAYA/NTS Conf#: [id number] DID#: [id number]
[2016-05-08] MEDS ORDERED: METH-70 PO (16:13)
== END 2016-05-07 19:08 | disposition left against medical advice (07) | DRG 640 ==
LOC: E/R 20:14 → TEL 23:17
PROVIDERS: ADMIT Hospitalist; ATTEND Hospitalist
PROC: 5A1D60Z (ICD-10-PCS; principal; 2016-05-06)
DX: E87.5 Hyperkalemia (principal); I12.0 Hypertensive chronic kidney disease with stage 5 chronic kidney disease or end stage renal disease; N18.6 End stage renal disease; K74.60 Unspecified cirrhosis of liver; G62.9 Polyneuropathy, unspecified; E87.70 Fluid overload, unspecified; D64.9 Anemia, unspecified; K21.9 Gastro-esophageal reflux disease without esophagitis; F32.9 Major depressive disorder, single episode, unspecified; Z99.2 Dependence on renal dialysis; Z91.15 Patient's noncompliance with renal dialysis; Z91.14 Patient's other noncompliance with medication regimen
CPT/HCPCS: 71010; 80048; 80053; 83690; 83735; 84100; 85025; 87081; 90935; 93005; 96374; 96375; J0131; J0610; J1815

== ENCOUNTER 2016-05-08 13:13 | Emergency (ER) | payer OTHER ==
[~2016-05-08] VITALS: Ht 172.7 cm; Wt 80.0 kg
[~2016-05-08 13:13] MED LIST changes: -METO5TAB58 PO
[2016-05-08 13:18] VITALS: Ht 172.7 cm; Wt 80.0 kg
[2016-05-08] MEDS ORDERED: DICLOFENAC SODIUM 37.5 MG/ML VIAL IV STA (15:07)
[2016-05-08] MEDS ORDERED: morphine 10 MG INJ IM ONE (15:30)
--- NOTE | 2016-05-08 15:56 | RADRPT ---
PROCEDURE: XR Right Hip. CLINICAL INDICATION: Trauma. Right hip pain. TECHNIQUE: Two views. Frontal and lateral. COMPARISON: No prior studies are available for comparison. FINDINGS: Images are suboptimal due to positioning. There is no obvious fracture or dislocation. The soft tissues are normal. Articular surfaces are intact. There is no lytic or blastic lesion. There is no radiopaque foreign body. IMPRESSION: 1. Suboptimal study due to positioning. 2. No obvious fracture or dislocation. RPTAT: QQ .Candido Howe MD, MD Date Time Electronically viewed and signed by .Candido Howe MD, MD on 05/08/2016 15:55 .R/
--- NOTE | 2016-05-08 15:59 | RADRPT ---
PROCEDURE: CT Lumbar Spine. CLINICAL INDICATION: Back pain radiating to the right lower extremity. TECHNIQUE: The study was performed on a multidetector CT scanner. Spiral axial 1 mm images were o btained through the lumbar spine and reformatted at 2.5 mm slice thickness. Sagittal and coronal ref ormations were created from the raw axial data. The images were reviewed on a PACS workstation. Tota l exam DLP is 680.42 mGy-cm. CTDIvol is 26.22 mGy. One or more of the following dose reduction te chniques were used: Automated exposure control, adjustment of the mA and/or kV according to patient size, use of iterative reconstruction technique. COMPARISON: No prior studies are available for comparison. FINDINGS: The vertebral bodies demonstrate normal height, alignment and osseous mineralization. There is no fr acture or lytic lesion. The abdominal aorta is not dilated. There is calcification in the aorta co nsistent with atherosclerosis. There is moderate ascites. Both kidneys demonstrate multiple small cysts. T12-L1: The disc and neuroforamina are unremarkable. L1-L2: The disc and neuroforamina are unremarkable. L2-L3: The disc and neuroforamina are unremarkable. L3-L4: The disc and neuroforamina are unremarkable. L4-L5: The disc and neuroforamina are unremarkable. L5-S1: The disc and neuroforamina are unremarkable. IMPRESSION: 1. Atherosclerosis. 2. Moderate ascites. 3. Multiple small bilateral renal cysts. 4. Otherwise normal CT scan of the lumbar spine. Please note that disk abnormalities are better vi sualized with MRI. RPTAT: QQ .Candido Howe MD, Date Time Electronically viewed and signed by .Candido Howe MD, MD on 05/08/2016 15:59 .R/
[2016-05-08 16:06] VITALS: BP 153/105; PULSE 98; RESP 20; TEMP 98.3
[2016-05-08] MEDS ORDERED: METH-70 PO (16:13)
--- NOTE | 2016-05-08 16:17 | ERD ---
ER Documentation Chief Complaint Date/Time DATE: 05/08/16 TIME: 16:14 Chief Complaint RT HIP PAIN. NO DEFORMITIES. DENIES INJURY HPI This 47-year-old male presented with what he calls right hip pain. Is actually back pain radiating down his lower leg. States that he gets this pain from time to time. Denies any trauma to the area. States that he had this pain while he was in the hospital recently because he was noncompliant with dialysis. Pain is worse on movement of the right leg and palpation. Pain stops below level of the knee ROS All systems reviewed and are negative except as per history of present illness. Medications Home Meds Active Scripts Methocarbamol* (Robaxin*) 750 Mg Tablet, 750 MG PO TID, #24 TAB Prov:HEIDY ACOSTA DO 05/08/16 Ondansetron Hcl* (Zofran*) 4 Mg Tablet, 4 MG PO Q8 for 30 Days, TAB 2 Refills Prov:KODY PHILLIP S. 04/16/15 Metoclopramide* (Reglan*) 10 Mg Tablet, 10 MG PO DAILY for 30 Days, TAB Prov:KODY PHILLIP S. 04/16/15 Ranitidine Hcl* (Ranitidine Hcl*) 150 Mg Tablet, 150 MG PO Q12 for 30 Days, TAB 2 Refills Prov:KODY HPILLIP S. 04/16/15 Minoxidil* (Lonitin*) 10 Mg Tab, 10 MG PO DAILY for 30 Days, TAB 2 Refills Prov:KODY PHILLIP S. 04/16/15 Nifedipine* (Nifedical XL*) 60 Mg/Bottle Tab.osm.24, 60 MG PO DAILY for 30 Days , TAB 2 Refills Prov:KODY PHILLIP S. 04/16/15 Hydralazine Hcl* (Hydralazine Hcl*) 100 Mg Tablet, 100 MG PO BID, #90 TAB Prov:KODY PHILLIP S. 04/16/15 Clonazepam* (Clonazepam*) 1 Mg Tablet, 1 MG PO QHS Y for ANXIETY for 30 Days, TAB Prov:KODY PHILLIP S. 04/16/15 Reported Medications Sertraline Hcl* (Sertraline Hcl*) 50 Mg Tablet, 50 MG PO DAILY, #30 TAB 05/01/16 Calcium Acetate* (Phoslo*) 667 Mg Tablet, 667 MG PO WITH MEALS, TAB 05/01/16 Gabapentin* (Gabapentin*) 600 Mg Tablet, 600 MG PO TID, #90 TAB 05/01/16 Carvedilol* (Carvedilol*) 6.25 Mg Tablet, 6.25 MG PO BID, #60 TAB 05/01/16 Diphenhydramine Hcl* (Diphenhydramine Hcl*) 25 Mg Capsule, 25 MG PO Q6 Y for ITCHING, CAP 05/01/16 Oxycodone Hcl* (IR) (Oxycodone Hcl*) 15 Mg Tablet, 15 MG PO BID Y for PAIN, TAB 04/26/16 Discontinued Reported Medications Metoclopramide* (Reglan*) 5 Mg Tablet, 5 MG PO DAILY, TAB 05/01/16 Discontinued Scripts Amlodipine Besylate* (Norvasc*) 10 Mg Tablet, 10 MG PO DAILY for 30 Days, TAB 2 Refills Prov:KODY PHILLIP S. 04/16/15 Lisinopril* (Lisinopril*) 40 Mg Tablet, 40 MG PO DAILY, #30 TAB Prov:KODY PHILLIP S. 04/16/15 Allergies Allergies: Coded Allergies: No Known Allergy (Unverified , 05/05/16) PMhx/Soc History of Surgery: Yes (GAll bladder surgery) Anesthesia Reaction: No Hx Neurological Disorder: No Hx Respiratory Disorders: No Hx Cardiac Disorders: Yes (cardiomegaly , high blood pressure) Hx Psychiatric Problems: No Hx Alcohol Use: Yes Hx Substance Use: Yes Hx Tobacco Use: Yes Smoking Status: Never smoker Physical Exam Vitals Vital Signs Date Time Temp Pulse Resp B/P Pulse Ox O2 Delivery O2 Flow Rate FiO2 05/08/16 13:18 97.9 58 16 131/59 99 Physical Exam Const: [] No distress Head: Atraumatic Eyes: Normal Conjunctiva ENT: Normal External Ears, Nose and Mouth. Neck: Full range of motion..~ No meningismus. Resp: Clear to auscultation bilaterally Cardio: Regular rate and rhythm, no murmurs Back: No midline tenderness, patient cries out on touching the skin of the lower back before it is even touched., Obligations conversation with the patient can palpate his lower back without any tenderness. Skin is normal in appearance there is no deformity. He has no tenderness palpation on posterior thyroid he says the pain radiates down. Ext: No cyanosis, or edema, 5 out of 5 strength all 4 extremities Neur: Awake and alert and oriented 3, no focal deficits Psych: Normal Mood and Affect Results 24 hrs Current Medications Medications (Trade) Dose Ordered Sig/Alejandrina Route PRN Reason Start Time Stop Time Status Last Admin Dose Admin Morphine Sulfate (morphine) 6 mg ONCE ONCE IM 05/08/16 15:30 05/08/16 15:31 DC 05/08/16 16:06 Diclofenac Sodium (Dyloject) 37.5 mg ONCE STAT IV 05/08/16 15:07 05/08/16 15:08 DC Gabapentin (Neurontin) 300 mg ONCE ONCE PO 05/08/16 16:30 05/08/16 16:31 Procedures/MDM X-ray was obtained because the patient's bizarre pain pattern. CT lumbar spine was found to look for any elvis retropulsion or compression of the spinal cord. There is no found the patient does not seem to have any significant stenosis. He was given 6 g of IM morphine the ER. Discharge him with Robaxin for muscle relaxation. Primary care follow-up is advised for tomorrow. Departure Diagnosis: Primary Impression: Sciatica Additional Impression: Neuropathic pain of right lower extremity Patient Instructions: Neuropathy, Peripheral, Back Pain W/ Sciatica HEIDY ACOSTA DO May 08, 2016 16:17
[2016-05-08] MEDS ORDERED: GABAPENTIN 300 MG CAP PO ONE (16:30)
== END 2016-05-08 17:20 | disposition home or self-care (01) ==
LOC: E/R 13:13
DX: M54.31 Sciatica, right side (principal); G57.91 Unspecified mononeuropathy of right lower limb; N18.9 Chronic kidney disease, unspecified; Z87.891 Personal history of nicotine dependence
CPT/HCPCS: 72131; 73510; J2270; Z7610; 96372

== ENCOUNTER 2016-05-09 08:20 | Emergency (ER) | payer OTHER ==
[~2016-05-09] VITALS: Ht 172.7 cm; Wt 86.5 kg
[~2016-05-09 08:20] MED LIST changes: +METH-70 PO
[2016-05-09 08:25] VITALS: Ht 172.7 cm; Wt 86.5 kg
[2016-05-09] MEDS ORDERED: ONDANSETRON 4 MG INJ IV STA (08:54)
[2016-05-09] MEDS ORDERED: morphine 4 MG/ML VIAL IV STA (08:54)
--- NOTE | 2016-05-09 09:26 | RADRPT ---
PROCEDURE: XR Chest. CLINICAL INDICATION: Chest pain TECHNIQUE: Single AP portable chest COMPARISON: 05/05/2016 FINDINGS: Cardiomegaly. .The lungs are clear though pleural effusion or focal consolidation. No pneumothorax. The osseous structures and soft tissues are unremarkable. IMPRESSION: 1. Cardiomegaly. No acute intrathoracic abnormality.. RPTAT:AAJJ Physician Lola Date Time Electronically viewed and signed by Physician Lola on 05/09/2016 09:26 CACHORRO/
[2016-05-09 09:35] LABS: INR 1.05; PROTIME 13.7 Sec (12.2-14.2); PT RATIO 1.1
[2016-05-09 09:36] LABS: ALBUMIN 3.1 g/dl (3.3-4.9); PARTIAL THROMBOPLASTIN TIME 33.8 Sec (25.0-35.0)
[2016-05-09 09:37] LABS: POTASSIUM 4.9 mmol/L (3.5-5.1)
[2016-05-09 09:39] LABS: CREATININE 8.99 mg/dl (0.61-1.24)
[2016-05-09 09:40] LABS: ALBUMIN/GLOBULIN RATIO 0.86; CALCIUM 8.9 mg/dl (8.4-10.2); TOTAL PROTEIN 6.7 g/dl (6.1-8.1)
[2016-05-09 09:48] LABS: BASOPHIL # 0.1 10^3/ul (0.0-0.1); BASOPHILS % 1.3 % (0.0-2.0); EOSINOPHILS # 0.1 10^3/ul (0.0-0.5); EOSINOPHILS % 0.7 % (0.0-7.0); HEMATOCRIT 25.9 % (42.0-52.0); HEMOGLOBIN 8.5 g/dl (14.0-18.0); LYMPHOCYTES # 1.4 10^3/ul (0.8-2.9); LYMPHOCYTES % 12.9 % (15.0-51.0); MEAN CORPUSCULAR HEMOGLOBIN 21.2 pg (29.0-33.0); MEAN CORPUSCULAR HGB CONC 32.6 g/dl (32.0-37.0); MEAN PLATELET VOLUME 8.8 fl (7.4-10.4); MONOCYTES % 17.5 % (0.0-11.0); NEUTROPHIL # 7.6 10^3/ul (1.6-7.5); NEUTROPHILS % 67.6 % (39.0-77.0); PLATELET COUNT 253 10^3/UL (140-440); RED BLOOD COUNT 3.99 10^6/ul (4.70-6.10); RED CELL DISTRIBUTION WIDTH 23.9 % (11.5-14.5); UNCORRECTED WBC 11.2 10^3/ul (4.8-10.8); WHITE BLOOD COUNT 11.2 10^3/ul (4.8-10.8)
[2016-05-09 09:49] LABS: CK-MB 1.57 ng/ml (0.0-2.4); CONDITION 1; LH ANALYZER COMMENTS 1; NUCLEATED RED BLOOD CELLS # 0.7 10^3/ul (0.0-0.0); SUSPECT 1
[2016-05-09 09:51] LABS: TROPONIN-I 0.12 ng/ml (0.00-0.12)
[2016-05-09] MEDS ORDERED: CYCLOBENZAPRINE 10 MG TAB PO ONE (10:30)
--- NOTE | 2016-05-09 10:37 | ERD ---
ER Documentation Chief Complaint Date/Time DATE: 05/09/16 TIME: 10:30 Chief Complaint RIGHT LEG PAIN,SOB,Pt NEEDS DIALYSIS HPI This is a 45-year-old -[place] female with a known history of end-stage renal disease on hemodialysis every Monday and Monday. The patient has been on dialysis for the past 3 years and went into renal failure due to complications from hypertension. The patient also has a known history of sciatica. He indicates that he has been taking analgesic medication at home for his right-sided buttocks pain that radiates to the lateral aspect of his right lower leg. He was recently discharged from the hospital 48 hours prior to arrival. He had a significant workup for the sciatic pain and had been discharged home with [facility]. He also states that he takes oxycodone for chronic pain. He denies any changes in his bladder or bowel frequency as he does make urine. He denies any saddle anesthesia. He denies any numbness or tingling of his bilateral lower extremities. He denies any recent remote trauma to the right hip or back. Contrary to the triage note the patient is not complaining of shortness of breath or difficulty breathing. The patient states he has presented to the emergency department today to require dialysis. However he is currently scheduled at 4 AM in the morning to receive his dialysis first thing tomorrow. His last full run of dialysis was 48 hours prior to arrival. He denies any chest pain or pressure that radiates to the neck arm back or jaw. ROS All systems reviewed and are negative except as per history of present illness. Medications Home Meds Active Scripts Methocarbamol* (Robaxin*) 750 Mg Tablet, 750 MG PO TID, #24 TAB Prov:HEIDY ACOSTA DO 05/08/16 Ondansetron Hcl* (Zofran*) 4 Mg Tablet, 4 MG PO Q8 for 30 Days, TAB 2 Refills Prov:RAAISHA,KODY S. 04/16/15 Metoclopramide* (Reglan*) 10 Mg Tablet, 10 MG PO DAILY for 30 Days, TAB Prov:RAHI,KODY S. 04/16/15 Ranitidine Hcl* (Ranitidine Hcl*) 150 Mg Tablet, 150 MG PO Q12 for 30 Days, TAB 2 Refills Prov:RAHI,KODY S. 04/16/15 Minoxidil* (Lonitin*) 10 Mg Tab, 10 MG PO DAILY for 30 Days, TAB 2 Refills Prov:KODY PHILLIP S. 04/16/15 Nifedipine* (Nifedical XL*) 60 Mg/Bottle Tab.osm.24, 60 MG PO DAILY for 30 Days , TAB 2 Refills Prov:KODY PHILLIP S. 04/16/15 Hydralazine Hcl* (Hydralazine Hcl*) 100 Mg Tablet, 100 MG PO BID, #90 TAB Prov:KODY PHILLIP S. 04/16/15 Clonazepam* (Clonazepam*) 1 Mg Tablet, 1 MG PO QHS Y for ANXIETY for 30 Days, TAB Prov:KODY PHILLIP S. 04/16/15 Reported Medications Sertraline Hcl* (Sertraline Hcl*) 50 Mg Tablet, 50 MG PO DAILY, #30 TAB 05/01/16 Calcium Acetate* (Phoslo*) 667 Mg Tablet, 667 MG PO WITH MEALS, TAB 05/01/16 Gabapentin* (Gabapentin*) 600 Mg Tablet, 600 MG PO TID, #90 TAB 05/01/16 Carvedilol* (Carvedilol*) 6.25 Mg Tablet, 6.25 MG PO BID, #60 TAB 05/01/16 Diphenhydramine Hcl* (Diphenhydramine Hcl*) 25 Mg Capsule, 25 MG PO Q6 Y for ITCHING, CAP 05/01/16 Oxycodone Hcl* (IR) (Oxycodone Hcl*) 15 Mg Tablet, 15 MG PO BID Y for PAIN, TAB 04/26/16 Discontinued Reported Medications Metoclopramide* (Reglan*) 5 Mg Tablet, 5 MG PO DAILY, TAB 05/01/16 Allergies Allergies: Coded Allergies: No Known Allergy (Unverified , 05/09/16) PMhx/Soc History of Surgery: Yes (GAll bladder surgery) Anesthesia Reaction: No Hx Neurological Disorder: No Hx Respiratory Disorders: No Hx Cardiac Disorders: Yes (cardiomegaly , high blood pressure) Hx Psychiatric Problems: No Hx Alcohol Use: Yes Hx Substance Use: Yes Hx Tobacco Use: Yes Smoking Status: Never smoker Physical Exam Vitals Vital Signs Date Time Temp Pulse Resp B/P Pulse Ox O2 Delivery O2 Flow Rate FiO2 05/09/16 08:25 99.2 126 18 151/106 97 Physical Exam Constitutional:Well-developed. Well-nourished. HEENT:Normocephalic. Atraumatic.Pupils were equal round reactive to light. Moist mucous membranes.No tonsillar exudates. Neck: No nuchal rigidity. No lymphadenopathy. No posterior cervical spine tenderness or step-offs. Respiratory: Not using accessory muscles of respiration.Lungs were clear to auscultation bilaterally. No rhonchi. No rales. No wheezing. Cardiovascular: Regular rate regular rhythm.No murmurs. No rubs were appreciated.S1, S2 normal. Distal pulses are palpable 2+ bilaterally. GI: Abdomen was soft. Nontender. Non Distended. No pulsatile abdominal masses or bruits. No rebound. No guarding. Bowel sounds were present and normal. Muscle skeletal: Full range of motion of both the upper and lower extremities bilaterally.Normal muscle tone.No assymetrical calf tenderness or swelling. Straight leg test positive on the right. No reproducible tenderness with percussion or palpation over the thoracic or lumbar spinous processes Skin: No petechia, no purpura. No lesions on the palms or the soles of the feet. No maculopapular rash. Positive thrill and bruit of the left upper extremity AV fistula. NEURO: Patient was alert, awake, orientated x3.No facial droop. Gait observed and normal with no ataxia.Speech had regular rate and rhythm. No focal neurological deficits. Result Diagram: 05/09/16 0910 05/09/16 0910 Results 24 hrs Laboratory Tests Test 05/09/16 09:10 Activated Partial Thromboplast Time 33.8Sec Alanine Aminotransferase (ALT/SGPT) 31IU/L Albumin 3.1g/dl Albumin/Globulin Ratio 0.86 Alkaline Phosphatase 140IU/L Anion Gap 20 Aspartate Amino Transf (AST/SGOT) 29IU/L B-Type Natriuretic Peptide 55243IH/ML Basophils # 0.110^3/ul Basophils % 1.3% Blood Morphology Comment Blood Urea Nitrogen 47mg/dl Calcium Level 8.9mg/dl Carbon Dioxide Level 26mmol/L Chloride Level 99mmol/L Creatine Kinase 106IU/L Creatine Kinase Index 1.5 Creatinine 8.99mg/dl Creatinine Kinase MB (Mass) 1.57ng/ml Direct Bilirubin 0.00mg/dl Eosinophils # 0.110^3/ul Eosinophils % 0.7% Globulin 3.60g/dl Glucose Level 102mg/dl Hematocrit 25.9% Hemoglobin 8.5g/dl INR International Normalized Ratio 1.05 Indirect Bilirubin 0.0mg/dl Lymphocytes # 1.410^3/ul Lymphocytes % 12.9% Mean Corpuscular Hemoglobin 21.2pg Mean Corpuscular Hemoglobin Concent 32.6g/dl Mean Corpuscular Volume 65.0fl Mean Platelet Volume 8.8fl Monocytes # 2.010^3/ul Monocytes % 17.5% Neutrophils # 7.610^3/ul Neutrophils % 67.6% Nucleated Red Blood Cells # 0.710^3/ul Nucleated Red Blood Cells % 6.0/100WBC Platelet Count 53341^3/UL Potassium Level 4.9mmol/L Prothrombin Time 13.7Sec Prothrombin Time Ratio 1.1 Red Blood Count 3.9910^6/ul Red Cell Distribution Width 23.9% Sodium Level 140mmol/L Total Bilirubin 0.0mg/dl Total Protein 6.7g/dl Troponin I 0.120ng/ml White Blood Count 11.210^3/ul Current Medications Medications (Trade) Dose Ordered Sig/Alejandrina Route PRN Reason Start Time Stop Time Status Last Admin Dose Admin Morphine Sulfate (morphine) 4 mg ONCE STAT IV 05/09/16 08:54 05/09/16 08:56 DC 05/09/16 09:37 Ondansetron HCl (Zofran Inj) 4 mg ONCE STAT IV 05/09/16 08:54 05/09/16 08:56 DC 05/09/16 09:36 Cyclobenzaprine HCl (Flexeril) 10 mg ONCE ONCE PO 05/09/16 10:30 05/09/16 10:31 05/09/16 10:21 Procedures/MDM The patient presented to the emergency department with back pain. My differential diagnosis included but was not limited to spinal origins of the pain such as fracture, osteomyelitis, epidural abscess, neoplasm, spondylolishtesis, discogenic, cauda equina syndrome or musculoligamentous. Nonspinal causes such as AAA, upper UTI, renal colic, aortic dissection, abdominal neoplasm were also considered as an etiology into their pain. The patient has a known history of sciatica and I did feel his symptoms were result of sciatic pain. He was requesting analgesic medication and had been seen in the emergency department 24 hours prior to arrival for similar pain. He was given IV morphine and Zofran. 12 Lead EKG tracing ordered and reviewed by myself showed: Sinus tachycardia at 102 bpm and no arrhythmia. [place] interval normal. QRS duration normal. No ST segment elevation No ST segment depression. No changes consistent with acute ischemia. One view chest radiograph showed no infiltrates no pneumothorax or pleural effusions and this was reviewed by myself with no pulmonary vascular congestion or signs of fluid overload I obtained ancillary laboratory work and the patient's BUN was 47 and creatinine was 8.99 with a normal potassium. 48 hours ago the patient's BUN was 44 and creatinine was 8.73. I indicated to the patient that he did not require emergent dialysis at this time. He is scheduled to undergo dialysis first thing at 4:00 in the morning tomorrow for his regular dialysis session. The patient stated that he did not like this time and therefore was seen by her social sciences department chair who would arrange for the patient to have dialysis later in the day which was more convenient for the patient. The patient was discharged home in fair condition. They were instructed to return to the emergency department at any time if there was any worsening of their condition. The patient stated they would follow up with their PCP in the next 24-48 hours to initiate a suitable medication regimen under the care of their PCP as well as to allow their PCP to monitor any drug reactions. The patient was discharged home with prescriptions after they gave informed consent to the new medication. They were also fully informed by myself on the adverse effects and adverse drug interactions in order to provide adequate safeguards to prevent possible adverse reactions to medications. Departure Diagnosis: Primary Impression: Sciatica of right side Additional Impression: Renal failure, chronic Condition: Fair Patient Instructions: Understanding Sciatica, Chronic Renal Failure ROMAN OLIVA May 09, 2016 10:37
== END 2016-05-09 11:07 | disposition home or self-care (01) ==
LOC: E/R 08:20
DX: M54.41 Lumbago with sciatica, right side (principal); N18.6 End stage renal disease; R07.9 Chest pain, unspecified; Z99.2 Dependence on renal dialysis; Z87.891 Personal history of nicotine dependence
CPT/HCPCS: 71010; 80053; 82550; 82553; 83880; 84484; 85025; 85610; 85730; J2270; J2405; Z7610; 93005; 96374; 96375